=== PATIENT | male | born 1965 | race Caucasian/White ===

== ENCOUNTER 2018-08-29 15:45 | Inpatient (IN) | payer OTHER ==
[~2018-08-29] VITALS: Ht 175.3 cm; Wt 94.8 kg
[~2018-08-29 15:45] MED LIST: METHADONE10 MG PO
[2018-08-29] MEDS ORDERED: METOPROLOL SUCC50 MG PO (16:11)
[2018-08-29] MEDS ORDERED: LOSARTAN POTAS100 MG PO (16:11)
[2018-08-29] MEDS ORDERED: METFORMIN HCL500 M2 PO (16:11)
[2018-08-29] MEDS ORDERED: farxiga PO (16:11)
[2018-08-29] MEDS ORDERED: CRESTOR10 MG PO (16:11)
[2018-08-29] MEDS ORDERED: HYDROCHLOROTHIA25 MG PO (16:11)
[2018-08-29] MEDS ORDERED: HYDROMORPHONE HC2 MG PO (16:11)
[2018-08-29] MEDS ORDERED: GABAPENTIN300 MG PO (16:11)
[2018-08-29] MEDS ORDERED: METHADONE HCL5 MG PO (16:11)
[2018-08-29 17:18] LABS: CLARITY,URINE CLEAR (CLEAR); COLOR,URINE YELLOW (YELLOW); KETONES,URINE 3+ (NEGATIVE); LEUKOCYTE ESTERASE ,URINE NEGATIVE (NEGATIVE); NITRITE,URINE NEGATIVE (NEGATIVE); PROTEIN,URINE DIPSTICK 1+ (NEGATIVE)
[2018-08-29 17:19] LABS: BILIRUBIN,URINE NEGATIVE (NEGATIVE); URINE UROBILINOGEN 0.2 mg/dL (0.2 - 1)
[2018-08-29 17:26] LABS: EPITHELIAL CELLS,URINE RARE /LPF; RBC,URINE 0-5 /HPF (0-5)
[2018-08-29 17:37] LABS: BASOPHILS # (AUTO) 0.1 (0.0-0.1); BASOPHILS % 0.7 % (0.0-1.0); EOSINOPHILS # (AUTO) 0.1 (0.0-0.4); EOSINOPHILS % 1.1 % (0.0-6.0); HEMATOCRIT 49.2 % (38.2-49.6); HEMOGLOBIN 16.2 g/dL (14.0-18.0); LYMPHOCYTES # (AUTO) 2.1 (1.0-3.2); LYMPHOCYTES % 22.2 % (18.0-39.1); MEAN CORPUSCULAR HEMOGLOBIN 29.2 pg (28-32); MEAN CORPUSCULAR HGB CONC 32.9 g/dL (31-35); MEAN CORPUSCULAR VOLUME 88.6 fL (81-99); MONOCYTES # (AUTO) 0.7 (0.2-0.8); MONOCYTES % 7.9 % (4.4-11.3); NEUTROPHILS # (AUTO) 6.2 (2.1-6.9); NEUTROPHILS % 66.7 % (38.7-80.0); PLATELET COUNT 269 x10e3/uL (140-360); RED BLOOD COUNT 5.55 x10e6/uL (4.3-5.7); RED CELL DISTRIBUTION WIDTH 13.9 % (11.7-14.4)
--- NOTE | 2018-08-29 17:51 | Diagnostic Imaging Report ---
EXAMINATION: CHEST 2 VIEWS INDICATION: Shortness of breath COMPARISON: None FINDINGS: PA and lateral views TUBES and LINES: None. LUNGS: Lungs are well inflated. Lungs are clear. There is no evidence of pneumonia or pulmonary edema. PLEURA: No pleural effusion or pneumothorax. HEART AND MEDIASTINUM: The cardiomediastinal silhouette is unremarkable. BONES AND SOFT TISSUES: No acute osseous lesion. Soft tissues are unremarkable. UPPER ABDOMEN: No free air under the diaphragm. IMPRESSION: No acute thoracic abnormality. Signed by: Dr. Maury Dickens M.D. on 08/29/2018 5:48 PM
[2018-08-29 18:01] LABS: ALBUMIN 4.3 g/dL (3.5-5.0); ALBUMIN/GLOBULIN RATIO 1.1 (0.8-2.0); ANION GAP 28.9 mmol/L (8-16); CALCIUM 9.8 mg/dL (8.4-10.2); CREATININE, SERUM 1.37 mg/dL (0.72-1.25); POTASSIUM 3.9 mmol/L (3.5-5.1)
--- NOTE | 2018-08-29 18:05 | NUR ---
RT notified of need for ABG.
[2018-08-29] MEDS ORDERED: SODIUM CHLORIDE 0.9% 1000ML 1,000 ML IV STA (18:06)
[2018-08-29 18:28] LABS: AMPHETAMINES SCREEN,URINE NEGATIVE (NEGATIVE); BENZODIAZEPINES SCREEN,URINE NEGATIVE (NEGATIVE); PHENCYCLIDINE SCREEN,URINE NEGATIVE (NEGATIVE)
--- NOTE | 2018-08-29 18:30 | NUR ---
ABG COLLECTED BY RT ORDERED, IVF'S INFUSING ORDERED. DR. SHELLEY IN TO TALK WITH PT ABOUT LAB RESULTS AND ADMISSION. PENDING FURTHER ORDERS AT THIS TIME AND PT AWARE OF THIS.
[2018-08-29 18:33] LABS: ABG HCO3 5 mmol/L (23-28); ABG PCO2 14 mmHg (41-51); ABG PH 7.14 (7.31-7.41); ABG PO2 108 mmHg (80-105)
[2018-08-29 19:11] LABS: ACETAMINOPHEN < 3 ug/mL (10-30)
[2018-08-29 19:12] LABS: SALICYLATE < 5.0 mg/dL (0-30)
--- NOTE | 2018-08-29 19:12 | NUR ---
REPORT GIVEN TO ADRIEL HI INSURANCE ACTUARY NURSE.
[2018-08-29] MEDS ORDERED: ONDANSETRON HCL INJ 2 MG/ML VIAL IV PRN (19:30)
[2018-08-29] MEDS: HYDROMORPHONE 2MG/ML 2 MG/ML ML IV PRN ×2 (19:37→23:15)
--- NOTE | 2018-08-29 19:40 | NUR ---
PT MEDICATED FOR PAIN ORDERED. PT DENIES NAUSEA AT THIS TIME. SUSSY RN AT BEDSIDE WITH PT AT THIS TIME AND AWARE PAIN MED GIVEN. PT PENDING ROOM ASSIGNMENT AT THIS TIME.
[2018-08-29] MEDS ORDERED: INSULIN REGULAR, HUMAN 3ML VL 100 UNIT in SODIUM CHLORIDE 0.45% 100 ML 100 ML IV SCH ×2 (19:46)
[2018-08-29] MEDS ORDERED: DEXTROSE 50% SYRINGE 50 ML IV PRN (20:00)
--- OUTSIDE RECORDS SUMMARY | 2018-08-29 20:05 | XMS REPORT ---
Author Author [facility] Address Unknown Phone Unavailable Care Team Providers Care Poker Prop Player Name Role Phone Jessica SHELLEY Unavailable Unavailable Problems This patient has no known problems. Allergies, Adverse Reactions, Alerts This patient has no known allergies or adverse reactions. Medications This patient has no known medications. Results Test Description Test Time Test Comments Text Results Atomic Results Result Comments CHEST 2 VIEWS 2018-08-29 17:48:00 [place] [address] Patient Name: ARIELA WANG MR #: [id number] : 1965 Age/Sex: 53/M Req #: [id number] [facility] Physician: Ordered by: DARRIAN SHELLEY MD Report #: [id number] Location: ER Room/Bed: Procedure: [id number] DX/CHEST 2 VIEWS Exam Date: 08/29/18 Exam Time: 1701 REPORT STATUS: Signed EXAMINATION: CHEST 2 VIEWS INDICATION: Shortnes s of breath COMPARISON: None FINDINGS: PA and lateral views TUBES and LINES: None. LUNGS: Lungs are well inflated. Lungs are clear. There is no evidence of pneumonia or pulmonary edema. PLEURA: No pleural effusion or pneumothorax. HEART AND MEDIASTINUM: The cardiomediastinal silhouette is unremarkable. BONES AND SOFT TISSUES: No acute osseous lesion. Soft tissues are unremarkable. UPPER ABDOMEN: No free air under the diaphragm. IMPRESSION: No acute thoracic abnormality. Signed by: Dr. Lisseth Dickens M.D. on 08/29/2018 5:48 PM Dictated By: LISSETH DICKENS MD 47 Transcribed By: CHERIE on 08/29/181747 COPY TO: DARRIAN SHELLEY MD
--- NOTE | 2018-08-29 20:30 | NUR ---
Received to 196 from ER. Placed on EKG, pulse ox & NBP for monitoring. Admission history, family history, & initial admission assessment completed. See intervention.
[2018-08-29 20:45] VITALS: BP 116/71
[2018-08-29] MEDS ORDERED: GABAPENTIN400 MG PO (20:57)
[2018-08-29] MEDS ORDERED: GABAPENTIN100 MG PO (20:57)
[2018-08-29 21:00] VITALS: BP 122/74
[2018-08-29] MEDS: SODIUM CHLORIDE 0.9% 1000ML 1,000 ML IV SCH (21:43)
--- NOTE | 2018-08-29 21:45 | NUR ---
BS 144. IV NS @ 150ml infusing and Insulin drip @ 2 units/hr.
[2018-08-29 22:00] VITALS: BP 103/45
[2018-08-29 23:00] VITALS: BP 136/78
[2018-08-29 23:59] VITALS: BP 93/58
[2018-08-30] VITALS (24 sets, daily range): BP systolic 76–126; BP diastolic 49–102
[2018-08-30] MEDS: SODIUM CHLORIDE 0.9% 1000ML 1,000 ML IV SCH ×2 (04:45→09:46)
[2018-08-30 04:48] LABS: BASOPHILS # (AUTO) 0.1 (0.0-0.1); BASOPHILS % 0.6 % (0.0-1.0); EOSINOPHILS # (AUTO) 0.2 (0.0-0.4); EOSINOPHILS % 2.5 % (0.0-6.0); HEMATOCRIT 37.5 % (38.2-49.6); HEMOGLOBIN 12.5 g/dL (14.0-18.0); LYMPHOCYTES # (AUTO) 2.8 (1.0-3.2); LYMPHOCYTES % 35.6 % (18.0-39.1); MEAN CORPUSCULAR HEMOGLOBIN 28.8 pg (28-32); MEAN CORPUSCULAR HGB CONC 33.3 g/dL (31-35); MEAN CORPUSCULAR VOLUME 86.4 fL (81-99); MONOCYTES # (AUTO) 0.8 (0.2-0.8); MONOCYTES % 9.9 % (4.4-11.3); NEUTROPHILS % 50.4 % (38.7-80.0); PLATELET COUNT 197 x10e3/uL (140-360); RED BLOOD COUNT 4.34 x10e6/uL (4.3-5.7); RED CELL DISTRIBUTION WIDTH 13.7 % (11.7-14.4)
[2018-08-30] MEDS: HYDROMORPHONE 2MG/ML 2 MG/ML ML IV PRN ×6 (04:50→23:25)
[2018-08-30 05:25] LABS: ANION GAP 19.3 mmol/L (8-16); BLOOD UREA NITROGEN 9 mg/dL (7-26); BUN/CREATININE RATIO 9 (6-25); CALCIUM 8.3 mg/dL (8.4-10.2); CHLORIDE 109 mmol/L (98-107); CREATININE, SERUM 1.04 mg/dL (0.72-1.25); EST GLOMERULAR FILTRATION RATE > 60 ML/MIN (60-); GLUCOSE 80 mg/dL (74-118); POTASSIUM 3.3 mmol/L (3.5-5.1); SODIUM 133 mmol/L (136-145)
[2018-08-30 05:28] LABS: CARBON DIOXIDE 8 mmol/L (22-29)
--- NOTE | 2018-08-30 06:00 | NUR ---
BS 77. Insulin drip off.
--- NOTE | 2018-08-30 06:09 | NUR ---
Call to Dr. Ann. Advised of BS & CO2 8. Orders given.
--- NOTE | 2018-08-30 07:33 | History and Physical ---
Patient is a 53-year-old gentleman that comes in with dizziness and weakness. The patient was in his usual state of health until 3 weeks prior to admission. The patient had increased thirst and increased urination. Went to the primary care's office and was given metformin. Was given Farxiga. The patient yesterday started to feel increasing dizziness, increasing weakness, and also some abdominal pain. The patient came into the emergency room and was found to have DKA and admitted to the ICU for DKA with DKA protocol. PAST MEDICAL HISTORY: History of diabetes mellitus, history of hypertension. Other medical history includes hyperlipidemia, hypertension and also history of low back pain. MEDICATIONS: That he takes at home are: 1. Gabapentin 100 mg 3 times a day. 2. Hydrochlorothiazide 25 mg. 3. Hydromorphone 2 mg. 4. Losartan 100 mg. 5. Metformin 500 mg. 6. Methadone 5 mg. 7. Metoprolol 50 mg. 8. Rosuvastatin 10 mg at nighttime. SURGICAL HISTORY: Includes history of appendectomy, history of neck surgery. SOCIAL HISTORY: Positive for nonsmoker. No ETOH. No IV drug abuse either. REVIEW OF SYSTEMS: Negative for chest pain. Positive for shortness of breath. Positive for nausea. Positive for vomiting. No diarrhea. No constipation or rectal bleeding. No hematochezia. No abdominal pain either. PHYSICAL EXAMINATION VITAL SIGNS: Oxygen saturation of 99%, temperature is within normal limits, pulse of 69, respirations of 16, blood pressure is 102/62, pulse oximetry 97% on room air. HEENT: Normocephalic and atraumatic. Pupils reactive to light and accommodation. CV: S1 and S2 normal. Regular rate and rhythm. ABDOMEN: Tender in the left lower quadrant with abdominal fullness in the left quadrant. EXTREMITIES: No clubbing. No cyanosis. No edema. NEUROLOGICAL: Alert and oriented times 3. The patient has no focal weakness either. LABORATORY VALUES: White count was 9.36, hemoglobin 16.2, hematocrit of 49.2. Chemistry shows sodium of 133, potassium 3.3, chloride 109, CO2 8 with an anion gap of 19.3, BUN was 9, total bilirubin was normal. Calcium was 8.3. Urine was ketones 3+ and nitrates negative. Toxicology positive for opiates and methadone, which he takes. Ethyl alcohol was less than 10. Acetaminophen was less than 3. IMAGING STUDIES: Chest x-ray was essentially within normal limits. No pleural effusion or pneumothorax. ASSESSMENT 1. Diabetic ketoacidosis with anion gap: The patient will be started on insulin protocol. Will continue with this. The patient will be monitored carefully. Consult with Dr. Ann has been done. Farxiga will be stopped right now. Pain medications will be instituted and hydration. Labs will be repeated in the morning. Further recommendations per clinical course. 2. Back pain: Will continue his pain medications. 3. The patient has some abdominal fullness: Will go ahead and do a computerized tomography of the abdomen and pelvis without contrast. Further recommendations per clinical course. Will keep the patient in the intensive care unit. Job#: [id number] FIDELIA
[2018-08-30] MEDS ORDERED: METFORMIN HCL 500 MG TAB CR PO SCH (08:00)
[2018-08-30 08:09] LABS: THYROID STIMULATING HORMONE 1.276 uIU/mL (0.350-4.940)
[2018-08-30] MEDS ORDERED: DIATRIZOATE MEGL/DIATRIZOA SOD 30 ML BTL PO ONE (08:17)
[2018-08-30] MEDS: GABAPENTIN 100 MG CAP PO SCH (08:56)
[2018-08-30] MEDS: METHADONE HCL 5 MG TAB PO SCH (08:56)
[2018-08-30] MEDS: LOSARTAN POTASSIUM 100 MG TAB PO SCH (10:00)
[2018-08-30] MEDS: METOPROLOL SUCCINATE 50 MG TAB XL PO SCH (10:00)
--- NOTE | 2018-08-30 12:42 | Diagnostic Imaging Report ---
EXAM: CT ABDOMEN AND PELVIS without IV CONTRAST DATE: 08/30/2018 7:11 AM Time stamp on Exam: 10:20 AM INDICATION: Abdominal fullness COMPARISON: None TECHNIQUE: The abdomen and pelvis were scanned using a multidetector helical scanner. Coronal and sagittal reformations were obtained. Routine protocol performed. Active dose reduction parameters were utilized. IV Contrast: None Oral Contrast: Gastrografin intermixed with water Radiation Dose: Total DLP 803.99 mGy*cm Estimated effective dose: DLP x 0.015 x size factor FINDINGS: LOWER THORAX: No consolidations LIVER: No masses BILIARY: The gallbladder is unremarkable. No ductal dilatation. SPLEEN: No masses PANCREAS: No masses ADRENALS: No nodules KIDNEYS: Symmetric perfusion. No enhancing masses. No hydronephrosis. GI TRACT: No distention, wall thickening or evidence of obstruction. Metallic densities at the GE junction. VESSELS: Atherosclerotic calcification within the aorta. PERITONEUM/RETROPERITONEUM: No free air or fluid LYMPH NODES: No lymphadenopathy REPRODUCTIVE ORGANS: Calcification within the prostate gland. BLADDER: Urinary bladder distention SOFT TISSUES: Unremarkable BONES: No suspicious bone lesions. Postoperative fusion at L5-S1 with orthopedic hardware IMPRESSION: 1. Mild urinary bladder distention. 2. Otherwise no acute abnormality. Signed by: Dr. Barron Elizondo DO on 08/30/2018 12:39 PM
--- NOTE | 2018-08-30 15:02 | Consultation ---
DATE OF CONSULTATION: August 29, 2018 ENDOCRINE CONSULTATION This is a patient of Dr. Amor Brian. Thank you very much for referring this patient. HISTORY OF PRESENT ILLNESS: This is a 53-year-old white gentleman who is referred to me for evaluation of uncontrolled diabetes mellitus and diabetic ketoacidosis. According to the patient, he was diagnosed to have diabetes about 3 to 4 weeks back. At that time he was put on metformin 500 mg twice daily. He had at that time polyuria, polydipsia, dryness of mouth and extreme exhaustion. He went back to see the physician, and since the blood sugars were still high the Farxiga was added about 10 mg once daily. Since that time, the patient has been having extreme weakness, polyuria, polydipsia, and also he is complaining of shortness of breath. He came to the emergency room. In the emergency room his blood sugars were in 120 to 130 range, but his anion gap was significantly elevated and his CO2 level was only 6. The patient is admitted into the hospital for evaluation and management of diabetic ketoacidosis. Patient also has history of blurred vision. He has also a chronic pain syndrome and is on methadone. PHYSICAL EXAMINATION: GENERAL: Today the patient is alert, awake, a little bit apprehensive. He is moderately overweight. VITAL SIGNS: His heart rate is around 80. Blood pressure is 120/70 mmHg. HEENT: Examination essentially unremarkable. Thyroid is palpable. Clinically he is near euthyroid. CHEST: Bilateral vesicular breathing. He has mild bronchospasm. CARDIAC: 1st and 2nd heart sounds. There is no 3rd or 4th heart sound. Ejection sound grade 2/6. CLINICAL IMPRESSION: 1. Diabetes mellitus type 2, new onset. 2. Diabetic ketoacidosis which could be induced by Farxiga as well. 3. Chronic pain syndrome. 4. Hypertension. The plan at this time is the metformin and the Farxiga have been discontinued. The patient has been started on insulin drip and IV fluids. Will also do a hemoglobin A1c and thyroid function test. Thanks for referring this patient. I will be following this patient with you. Job#: [id number] ANURAG
[2018-08-30] MEDS: DEXTROSE 5%/0.45% SOD CHL 1,000 ML IV SCH ×2 (16:18→23:18)
--- NOTE | 2018-08-30 18:58 | NUR ---
Report received. Assumed care. Assessment done. See interventions. IV D5 / NS @ 150ml/hr & Insulin @ 3units/hr.
[2018-08-30] MEDS: SIMVASTATIN 20 MG TAB PO SCH (21:00)
[2018-08-30] MEDS ORDERED: SIMVASTATIN 40 MG TAB PO SCH (21:00)
[2018-08-30] MEDS: GABAPENTIN 400 MG CAP PO SCH (21:00)
--- NOTE | 2018-08-30 21:31 | NUR ---
HS snack given per request.
--- NOTE | 2018-08-30 23:27 | NUR ---
Medicated for c/o pain.
[2018-08-31] VITALS (22 sets, daily range): BP systolic 82–129; BP diastolic 50–88
[2018-08-31] MEDS: HYDROMORPHONE 2MG/ML 2 MG/ML ML IV PRN ×6 (05:10→23:00)
[2018-08-31 05:29] LABS: BASOPHILS # (AUTO) 0.1 (0.0-0.1); BASOPHILS % 0.8 % (0.0-1.0); EOSINOPHILS # (AUTO) 0.3 (0.0-0.4); HEMATOCRIT 35.3 % (38.2-49.6); HEMOGLOBIN 11.8 g/dL (14.0-18.0); LYMPHOCYTES # (AUTO) 2.4 (1.0-3.2); MEAN CORPUSCULAR HEMOGLOBIN 28.7 pg (28-32); MEAN CORPUSCULAR HGB CONC 33.4 g/dL (31-35); MEAN CORPUSCULAR VOLUME 85.9 fL (81-99); MONOCYTES # (AUTO) 0.6 (0.2-0.8); NEUTROPHILS # (AUTO) 2.9 (2.1-6.9); NEUTROPHILS % 46.2 % (38.7-80.0); PLATELET COUNT 183 x10e3/uL (140-360); RED BLOOD COUNT 4.11 x10e6/uL (4.3-5.7)
[2018-08-31] MEDS: DEXTROSE 5%/0.45% SOD CHL 1,000 ML IV SCH ×2 (05:46→10:15)
[2018-08-31 05:56] LABS: ALANINE AMINOTRANSFERASE 8 IU/L (0-55); ALBUMIN 2.8 g/dL (3.5-5.0); ALBUMIN/GLOBULIN RATIO 1.1 (0.8-2.0); ALKALINE PHOSPHATASE 62 IU/L (40-150); ANION GAP 11.9 mmol/L (8-16); BLOOD UREA NITROGEN 10 mg/dL (7-26); BUN/CREATININE RATIO 10 (6-25); CALCIUM 8.5 mg/dL (8.4-10.2); CARBON DIOXIDE 17 mmol/L (22-29); CHLORIDE 112 mmol/L (98-107); CREATININE, SERUM 1.04 mg/dL (0.72-1.25); EST GLOMERULAR FILTRATION RATE > 60 ML/MIN (60-); GLUCOSE 140 mg/dL (74-118); MAGNESIUM 2.1 MG/DL (1.3-2.1); SODIUM 138 mmol/L (136-145)
[2018-08-31 06:09] LABS: POTASSIUM 2.9 mmol/L (3.5-5.1)
--- NOTE | 2018-08-31 06:12 | NUR ---
K+ 2.9. Call to Dr. Brian. Spoke with answering service. Awaiting call back.
--- NOTE | 2018-08-31 06:30 | NUR ---
Dr. Brian here. Advised of K+ 2.9. Orders given. KDur 40mEq po given.
[2018-08-31] MEDS ORDERED: POTASSIUM CHLORIDE 20 MEQ TAB CR PO NR (06:45)
--- NOTE | 2018-08-31 07:00 | Progress Note ---
DATE: Patient came in with diabetic ketoacidosis in the ICU. Receiving insulin drip. Currently, the patient is doing okay. No complaints. No chest pains. No shortness of breath. No abdominal pain. No fever. No nausea or vomiting. MEDICATIONS: At this time, gabapentin, insulin drip. The patient is on losartan, methadone, metoprolol, Zofran as needed, potassium chloride, and simvastatin. OBJECTIVE VITAL SIGNS: Temperature is 97.7, pulse of 57, blood pressure is trending low at 117/78, satting at 97% on room air. HEENT: Normocephalic and atraumatic. Pupils reactive to light and accommodation. CV: S1 and S2 normal. Regular rate and rhythm. ABDOMEN: Nontender and nondistended. EXTREMITIES: No clubbing. No cyanosis. No edema. LABORATORY VALUES: White count is 6.18, hemoglobin 11.8, hematocrit of 35.3. Chemistry: Sodium of 138, potassium 3.9, bicarb 17, anion gap is corrected at 11.9. GFR above 60. Blood sugars have been running in the 140s to 250 range. The rest of the labs are within normal limits. MICROBIOLOGY: Blood cultures with no growth in 24 hours. Urine culture is pending. ASSESSMENT 1. Diabetic ketoacidosis: Could be induced by Farxiga. 2. Diabetes mellitus, new onset: I will start the patient on insulin. 3. Chronic pain syndrome: Continue with pain management. 4. Hypertension: Continue with antihypertensives. 5. Hyperlipidemia: Will continue with statins at this time. The patient is being seen by Dr. Ann. Further recommendations per clinical course. The patient's A1c is pending. The patient can be transferred to [facility]. Further recommendations per clinical course. Will continue to monitor the patient along with the rn lactation consultant. Job#: [id number] FIDELIA
[2018-08-31] MEDS: GABAPENTIN 100 MG CAP PO SCH (08:32)
[2018-08-31] MEDS: METHADONE HCL 5 MG TAB PO SCH (08:32)
[2018-08-31] MEDS: LOSARTAN POTASSIUM 100 MG TAB PO SCH (09:00)
[2018-08-31] MEDS: METOPROLOL SUCCINATE 50 MG TAB XL PO SCH (09:00)
--- NOTE | 2018-08-31 12:15 | NUR ---
FOR BLOOD GLUCOSE 215, INCREASED INSULIN GTT TO 3 UNITS PER HOUR PER PROTOCOL
[2018-08-31] MEDS ORDERED: INSULIN LISPRO 100 UNIT/1 ML 3ML VIAL SQ ONE (14:00)
[2018-08-31] MEDS: POTASSIUM CHLORIDE 40 MEQ in DEXTROSE 5%/0.45% SOD CHL 1,000 ML IV SCH ×3 (14:16)
--- NOTE | 2018-08-31 15:34 | NUR ---
PATIENT TRANSFERRED FROM ICU TO IMCU. Network And Threat Support Specialist to bedside to discuss plan of care with patient/family. CM/SW role and care transitions discussed. Anticipated discharge plan discussed along with duration of care. CM discussed patients right to make decisions in care. CM/SW work hours given. Patient lives: LIVES WITH DAUGHTER IN [address] IN [place], [place] Admit/Transfer: ED POA/Emergency contact: : AMELIA WANG WHO LIVES IN [place] [phone]; DAUGHTER: ROB WANG [phone] Current/Previous Home Health: NONE PCP/Follow-up Care: LUCIUS VILLASENOR MD Current/Previous DME: NONE Other Services: NONE Employment Status: EMPLOYED Areas of Concerns: DIABETES EDUCATION Referral Needs: NONE AT THIS TIME Education Needs: DIABETES EDUCATION IMM/MARK given and signed (if applicable): NO Goal for discharge: RETURN HOME INDEPENDENT WITH NO NEEDS CM left business card at the bedside with contact information. Name and number was also written on the patients whiteboard. Patient verbalized understanding of discussion. CM will follow-up with ongoing discharge and transition of care needs.
[2018-08-31] MEDS: INSULIN LISPRO 100 UNIT/1 ML 3ML VIAL SQ SCH ×3 (15:52→20:32)
[2018-08-31] MEDS ORDERED: POTASSIUM CHLORIDE 20 MEQ TAB CR PO SCH (18:00)
--- NOTE | 2018-08-31 19:30 | NUR ---
Received patient stable in bed, ambulatory. Insulin drip stopped, on blood sugars achs, insulin sliding scale and scheduled Levemir. Remains on IV fluids with potassium supplementation. On Dilaudid prn for pain
[2018-08-31] MEDS: GABAPENTIN 400 MG CAP PO SCH (20:31)
[2018-08-31] MEDS: SIMVASTATIN 20 MG TAB PO SCH (20:31)
[2018-08-31] MEDS: INSULIN DETEMIR 100 UNIT/ML PEN SQ SCH (20:32)
--- NOTE | 2018-08-31 21:00 | NUR ---
blood sugars done, 179, insulin administered as prescribed, Hs snack given as per request
[2018-09-01] VITALS (7 sets, daily range): BP systolic 91–118; BP diastolic 58–64
[2018-09-01] MEDS: ONDANSETRON HCL INJ 2 MG/ML VIAL IV PRN ×5 (02:24→22:43)
[2018-09-01] MEDS: HYDROMORPHONE 2MG/ML 2 MG/ML ML IV PRN ×7 (02:30→22:43)
--- NOTE | 2018-09-01 04:00 | NUR ---
Patient remains on iv fluids, able to ambulate to the bathroom, remains a medsurg status, prn Dilaudid administered prn for pain. Vitals stable.
[2018-09-01 06:06] LABS: ANION GAP 13.6 mmol/L (8-16); BLOOD UREA NITROGEN 7 mg/dL (7-26); BUN/CREATININE RATIO 8 (6-25); CALCIUM 8.7 mg/dL (8.4-10.2); CARBON DIOXIDE 20 mmol/L (22-29); CHLORIDE 110 mmol/L (98-107); CREATININE, SERUM 0.85 mg/dL (0.72-1.25); EST GLOMERULAR FILTRATION RATE > 60 ML/MIN (60-); GLUCOSE 214 mg/dL (74-118); POTASSIUM 3.6 mmol/L (3.5-5.1); SODIUM 140 mmol/L (136-145)
[2018-09-01] MEDS ORDERED: POTASSIUM CHLORIDE 20 MEQ TAB CR PO STA (06:39)
[2018-09-01] MEDS: INSULIN LISPRO 100 UNIT/1 ML 3ML VIAL SQ SCH ×7 (07:45→21:07)
[2018-09-01] MEDS: LOSARTAN POTASSIUM 100 MG TAB PO SCH (08:19)
[2018-09-01] MEDS: GABAPENTIN 100 MG CAP PO SCH (08:19)
[2018-09-01] MEDS: METHADONE HCL 5 MG TAB PO SCH (08:19)
[2018-09-01] MEDS: METOPROLOL SUCCINATE 50 MG TAB XL PO SCH (08:20)
[2018-09-01] MEDS: INSULIN DETEMIR 100 UNIT/ML PEN SQ SCH ×2 (09:30→21:07)
[2018-09-01] MEDS: POTASSIUM CHLORIDE 40 MEQ in DEXTROSE 5%/0.45% SOD CHL 1,000 ML IV SCH ×2 (10:44→20:53)
--- NOTE | 2018-09-01 13:57 | NUR ---
Patient ambulating in ken and in room independently. doing well. has effective pain relief with current interventions.
--- NOTE | 2018-09-01 16:49 | NUR ---
instructed patient early afternoon on checking his blood glucose and drawing up and self administering insulin. dinner at bedside. pt completed his own blood glucose and self administered insulin per MD orders with supervision and guidance. pt will need continue instructions and assistance until discharge home with orders. written handouts given as well.
[2018-09-01] MEDS: GABAPENTIN 400 MG CAP PO SCH (21:05)
[2018-09-01] MEDS: SIMVASTATIN 20 MG TAB PO SCH (21:05)
[2018-09-02] MEDS: HYDROMORPHONE 2MG/ML 2 MG/ML ML IV PRN ×4 (01:49→11:40)
[2018-09-02] MEDS: ONDANSETRON HCL INJ 2 MG/ML VIAL IV PRN ×3 (01:49→11:40)
[2018-09-02 04:54] LABS: BASOPHILS % 0.9 % (0.0-1.0); EOSINOPHILS # (AUTO) 0.2 (0.0-0.4); EOSINOPHILS % 4.3 % (0.0-6.0); HEMATOCRIT 33.4 % (38.2-49.6); HEMOGLOBIN 11.3 g/dL (14.0-18.0); LYMPHOCYTES % 43.9 % (18.0-39.1); MEAN CORPUSCULAR HEMOGLOBIN 29.1 pg (28-32); MEAN CORPUSCULAR HGB CONC 33.8 g/dL (31-35); MEAN CORPUSCULAR VOLUME 86.1 fL (81-99); MONOCYTES # (AUTO) 0.5 (0.2-0.8); NEUTROPHILS # (AUTO) 1.9 (2.1-6.9); PLATELET COUNT 162 x10e3/uL (140-360); RED BLOOD COUNT 3.88 x10e6/uL (4.3-5.7)
[2018-09-02 05:00] VITALS: BP 124/70
[2018-09-02 05:18] LABS: ANION GAP 13.7 mmol/L (8-16); BLOOD UREA NITROGEN 6 mg/dL (7-26); BUN/CREATININE RATIO 9 (6-25); CALCIUM 8.6 mg/dL (8.4-10.2); CARBON DIOXIDE 20 mmol/L (22-29); CHLORIDE 108 mmol/L (98-107); EST GLOMERULAR FILTRATION RATE > 60 ML/MIN (60-); GLUCOSE 213 mg/dL (74-118); POTASSIUM 3.7 mmol/L (3.5-5.1); SODIUM 138 mmol/L (136-145)
[2018-09-02] MEDS: INSULIN LISPRO 100 UNIT/1 ML 3ML VIAL SQ SCH ×4 (07:50→11:52)
[2018-09-02 08:00] VITALS: BP 112/74
[2018-09-02] MEDS: METOPROLOL SUCCINATE 50 MG TAB XL PO SCH (08:08)
[2018-09-02] MEDS: LOSARTAN POTASSIUM 100 MG TAB PO SCH (08:08)
[2018-09-02] MEDS: GABAPENTIN 100 MG CAP PO SCH (08:08)
[2018-09-02] MEDS: METHADONE HCL 5 MG TAB PO SCH (08:08)
[2018-09-02] MEDS: INSULIN DETEMIR 100 UNIT/ML PEN SQ SCH (08:09)
[2018-09-02] MEDS: POTASSIUM CHLORIDE 40 MEQ in DEXTROSE 5%/0.45% SOD CHL 1,000 ML IV SCH (08:16)
[2018-09-02 09:39] VITALS: BP 112/74
[2018-09-02] MEDS ORDERED: LANTUS 3ML100 UNITS/ SQ (15:14)
[2018-09-02] MEDS ORDERED: HUMALOG100 UNIT/3 SQ (15:15)
--- NOTE | 2018-09-02 15:30 | NUR ---
patient discharge from [facility] to with all belongings and with prescriptions. pt demonstrated again how to draw up insulin pen and with vial and syringe. present too and observed teaching. written instructions given with discharge paperwork. patient and verbalized understanding of all discharge instructions. p.iv removed.
[2018-09-02] MEDS ORDERED: INSULIN LISPRO 100 UNIT/1 ML 3ML VIAL SQ SCH (16:30)
== END 2018-09-02 17:22 | disposition home or self-care (01) | DRG 639 ==
LOC: ER 15:45 → ERHOLD 20:02 → ICU 20:40
PROVIDERS: ADMIT Family Medicine; ATTEND Family Medicine
DX: E11.10 Type 2 diabetes mellitus with ketoacidosis without coma (principal); G89.4 Chronic pain syndrome; M54.5 Low back pain; I10 Essential (primary) hypertension; E78.5 Hyperlipidemia, unspecified; F11.90 Opioid use, unspecified, uncomplicated; Z79.84 Long term (current) use of oral hypoglycemic drugs; Z28.82 Immunization not carried out because of caregiver refusal
CPT/HCPCS: 36415; 36600; 71046; 74176; 80048; 80053; 80307; 80320; 80329; 81001; 82805; 82948; 83036; 83605; 83690; 83735; 84443; 85025; 87040; 87086; 93005; 96372; 96376; 99284; J2405; J3480; J7030

== ENCOUNTER 2020-06-23 08:04 | Observation (INO) | payer OTHER ==
[~2020-06-23] VITALS: Ht 177.8 cm; Wt 92.5 kg
[~2020-06-23 08:04] MED LIST changes: +CRESTOR10 MG PO; +GABAPENTIN100 MG PO; +GABAPENTIN300 MG PO; +GABAPENTIN400 MG PO; +HUMALOG100 UNIT/3 SQ; +HYDROCHLOROTHIA25 MG PO; +HYDROMORPHONE HC2 MG PO; +LANTUS 3ML100 UNITS/ SQ; +LOSARTAN POTAS100 MG PO; +METFORMIN HCL500 M2 PO; +METHADONE HCL5 MG PO; +METOPROLOL SUCC50 MG PO; +farxiga PO
[2020-06-23] MEDS ORDERED: SODIUM CHLORIDE 0.9% 1000ML 1,000 ML IV STA (08:07)
--- NOTE | 2020-06-23 08:07 | Emergency Department Note ---
History of Present Illnes History of Present Illness History of Present Illness This is a 55 year old male presents to the ED for 3 week h/o of BS above 300 not responsive to current medication managmenet. Additional complaint of palpitations of the same length duration with associated light headiness . Onset (how long ago): week(s) (3) Progression: unchanged Chronicity: new Context: Denies recent illness, Denies recent surgery, Denies recent immobilization, Denies recent travel, Denies trauma/injury, Denies new medications, Denies hx of DVT/PE, Denies non-compliance w/ medications, Denies other Associated symptoms: Reports headaches, Reports malaise; Denies chest pain Treatments prior to arrival: none Previous service: tests performed, one or more referrals, re-evaluation Past Medical/Family History Physician Review I have reviewed the patient's past medical and family history. Any updates have been documented here. Past Medical History Past Medical History: Hypertension, Diabetes Past Surgical History: Appendectomy, Hernia Repair, Back Surgery, Orthopedic Implants Other Surgery: Plates in R arm Wayne L leg Plate in back Social History Smoking Cessation: Never Smoker Alcohol Use: None Any Illegal Drug Use: No Other Last Tetanus: unknown Review of Systems Review of Systems Constitutional: Reports no symptoms EENTM: Reports no symptoms Cardiovascular: Reports palpitations Respiratory: Reports no symptoms Gastrointestinal: Reports no symptoms Genitourinary: Reports no symptoms Musculoskeletal: Reports no symptoms Integumentary: Reports no symptoms Neurological: Reports headache, Reports other (dizziness) Psychological: Reports no symptoms Endocrine: Reports no symptoms Hematological/Lymphatic: Reports no symptoms Physical Exam Related Data Allergies: Coded Allergies: No Known Allergies (Unverified , 08/29/18) Physical Exam CONSTITUTIONAL HENT EYES NECK PULMONARY CARDIOVASCULAR GASTROINTESTINAL GENITOURINARY SKIN MUSCULOSKELETAL NEUROLOGICAL PSYCHOLOGICAL Results Laboratory Lab results reviewed: Yes Laboratory comments Laboratory Tests Test 06/23/20 09:21 06/23/20 08:48 Arterial Blood pH 7.36 (7.35-7.45) Arterial Blood Partial Pressure CO2 34 mmHg (35-45) Arterial Blood Partial Pressure O2 72 mmHg (80-105) Arterial Blood HCO3 19 mmol/L (22-26) Arterial Blood Total CO2 20 Arterial Blood Oxygen Saturation 95.0 % (95-98) Arterial Blood Base Excess -6.0 mmol/L (-2 - 3) FiO2 21 % White Blood Count 12.57 x10e3/uL (4.8-10.8) Red Blood Count 5.34 x10e6/uL (4.3-5.7) Hemoglobin 15.1 g/dL (14.0-18.0) Hematocrit 44.7 % (38.2-49.6) Mean Corpuscular Volume 83.7 fL (81-99) Mean Corpuscular Hemoglobin 28.3 pg (28-32) Mean Corpuscular Hemoglobin Concent 33.8 g/dL (31-35) Red Cell Distribution Width 13.0 % (11.7-14.4) Platelet Count 276 x10e3/uL (140-360) Neutrophils (%) (Auto) 74.7 % (38.7-80.0) Lymphocytes (%) (Auto) 16.9 % (18.0-39.1) Monocytes (%) (Auto) 5.4 % (4.4-11.3) Eosinophils (%) (Auto) 1.4 % (0.0-6.0) Basophils (%) (Auto) 0.6 % (0.0-1.0) Neutrophils # (Auto) 9.4 (2.1-6.9) Lymphocytes # (Auto) 2.1 (1.0-3.2) Monocytes # (Auto) 0.7 (0.2-0.8) Eosinophils # (Auto) 0.2 (0.0-0.4) Basophils # (Auto) 0.1 (0.0-0.1) Absolute Immature Granulocyte (auto 0.13 x10e3/uL (0-0.1) Urine Color Yellow (YELLOW) Urine Clarity Clear (CLEAR) Urine pH 5 (5 - 7) Urine Specific [place] 1.025 (1.010-1.025) Urine Protein Negative (NEGATIVE) Urine Glucose (UA) 2+ (NEGATIVE) Urine Ketones >=160 (NEGATIVE) Urine Blood Trace (NEGATIVE) Urine Nitrite Negative (NEGATIVE) Urine Bilirubin Negative (NEGATIVE) Urine Urobilinogen 0.2 mg/dL (0.2 - 1) Urine Leukocyte Esterase Negative (NEGATIVE) Urine RBC 0-5 /HPF (0-5) Urine WBC 0-5 /HPF (0-5) Urine Epithelial Cells Rare /LPF (NONE) Urine Bacteria Rare /HPF (NONE) Sodium Level 136 mmol/L (136-145) Potassium Level 4.4 mmol/L (3.5-5.1) Chloride Level 102 mmol/L (98-107) Carbon Dioxide Level 19 mmol/L (22-29) Anion Gap 19.4 mmol/L (8-16) Blood Urea Nitrogen 12 mg/dL (7-26) Creatinine 0.85 mg/dL (0.72-1.25) Estimat Glomerular Filtration Rate > 60 ML/MIN (60-) BUN/Creatinine Ratio 14 (6-25) Glucose Level 360 mg/dL (74-118) Calcium Level 9.1 mg/dL (8.4-10.2) Total Bilirubin 0.5 mg/dL (0.2-1.2) Aspartate Amino Transf (AST/SGOT) 18 IU/L (5-34) Alanine Aminotransferase (ALT/SGPT) 22 IU/L (0-55) Alkaline Phosphatase 120 IU/L (40-150) Creatine Kinase 38 IU/L (30-200) Creatine Kinase MB 1.80 ng/mL (0-5.0) Troponin I 0.019 ng/mL (0-0.300) Total Protein 7.4 g/dL (6.5-8.1) Albumin 4.1 g/dL (3.5-5.0) Globulin 3.3 g/dL (2.3-3.5) Albumin/Globulin Ratio 1.2 (0.8-2.0) Procedures 12 Lead ECG Interpretation ECG Interpretation : ECG: ECG 1 Habitat Biologist: Interpreted by ED physician Date: Jun 23, 2020 Time: 08:28 Prior ECG tracings: reviewed Rhythm: sinus rhythm Rate: normal BPM: 84 QRS axis: normal ST segments normal: Yes T waves normal: Yes Other findings: PRWP Clinical Impression: non-specific ECG ABG Interpretation ABG Results: ABG 1 Interpretation: normal Assessment & Plan Medical Decision Making MDM Diff Dx : DKA, ACS, hyperglycemia Assessment & Plan Final Impression: (1) Heart palpitations (2) Hyperglycemia Home Meds Reported Medications Insulin Lispro (HUMALOG) 100 Unit/1 Ml Insuln.pen, 10 SQ AC 09/02/18 Insulin Glargine (LANTUS 3ML PEN) 100 Units/1 Ml Inj, 20 UNITS SQ HS 09/02/18 Gabapentin (GABAPENTIN) 400 Mg Capsule, 400 MG PO HS, #30 CAP 08/29/18 Gabapentin (GABAPENTIN) 100 Mg Capsule, PO DAILY 08/29/18 Hydromorphone Hcl (HYDROMORPHONE HCL) 2 Mg Tablet, MG PO, TAB 08/29/18 Methadone Hcl (METHADONE HCL) 5 Mg Tablet, 5 MG PO DAILY, TAB 08/29/18 Metoprolol Succinate (METOPROLOL SUCCINATE) 50 Mg Tab.er.24h, 50 MG PO DAILY, MG 08/29/18 Rosuvastatin Calcium (CRESTOR) 10 Mg Tab, 10 MG PO HS THERAPEUTICALLY SUBSTITUTED WITH SIMVASTATIN 40MG 08/29/18 Hydrochlorothiazide (HYDROCHLOROTHIAZIDE) 25 Mg Tablet, 25 MG PO DAILY, #30 TAB 08/29/18 Losartan Potassium (LOSARTAN POTASSIUM) 100 Mg Tablet, 100 MG PO DAILY, TAB 08/29/18 RENO TAYLOR DO Jun 23, 2020 08:07
[2020-06-23 09:01] LABS: BASOPHILS # (AUTO) 0.1 (0.0-0.1); BASOPHILS % 0.6 % (0.0-1.0); EOSINOPHILS # (AUTO) 0.2 (0.0-0.4); EOSINOPHILS % 1.4 % (0.0-6.0); HEMATOCRIT 44.7 % (38.2-49.6); HEMOGLOBIN 15.1 g/dL (14.0-18.0); LYMPHOCYTES # (AUTO) 2.1 (1.0-3.2); LYMPHOCYTES % 16.9 % (18.0-39.1); MEAN CORPUSCULAR HEMOGLOBIN 28.3 pg (28-32); MEAN CORPUSCULAR HGB CONC 33.8 g/dL (31-35); MEAN CORPUSCULAR VOLUME 83.7 fL (81-99); MONOCYTES # (AUTO) 0.7 (0.2-0.8); MONOCYTES % 5.4 % (4.4-11.3); NEUTROPHILS # (AUTO) 9.4 (2.1-6.9); NEUTROPHILS % 74.7 % (38.7-80.0); PLATELET COUNT 276 x10e3/uL (140-360); RED BLOOD COUNT 5.34 x10e6/uL (4.3-5.7)
[2020-06-23 09:27] LABS: CLARITY,URINE CLEAR (CLEAR); COLOR,URINE YELLOW (YELLOW); KETONES,URINE >=160 (NEGATIVE); LEUKOCYTE ESTERASE ,URINE NEGATIVE (NEGATIVE); NITRITE,URINE NEGATIVE (NEGATIVE); PROTEIN,URINE DIPSTICK NEGATIVE (NEGATIVE)
[2020-06-23 09:28] LABS: ALANINE AMINOTRANSFERASE 22 IU/L (0-55); ALBUMIN 4.1 g/dL (3.5-5.0); ALBUMIN/GLOBULIN RATIO 1.2 (0.8-2.0); ALKALINE PHOSPHATASE 120 IU/L (40-150); ANION GAP 19.4 mmol/L (8-16); BILIRUBIN,URINE NEGATIVE (NEGATIVE); BLOOD UREA NITROGEN 12 mg/dL (7-26); BUN/CREATININE RATIO 14 (6-25); CALCIUM 9.1 mg/dL (8.4-10.2); CARBON DIOXIDE 19 mmol/L (22-29); CHLORIDE 102 mmol/L (98-107); CREATININE, SERUM 0.85 mg/dL (0.72-1.25); EST GLOMERULAR FILTRATION RATE > 60 ML/MIN (60-); GLUCOSE 360 mg/dL (74-118); POTASSIUM 4.4 mmol/L (3.5-5.1); SODIUM 136 mmol/L (136-145); URINE UROBILINOGEN 0.2 mg/dL (0.2 - 1)
--- OUTSIDE RECORDS SUMMARY | 2020-06-23 09:36 | XMS REPORT | Continuity of Care Document ---
Author Author [facility] t Organization [facility] Address [address] [place] [address] Phone Unavailable Care Team Providers Care Movement Assembler Name Role Phone Nancy VILLASENOR M.D. PCP Figueroa BOYD Attphys Unavailable Figueroa BOYD Admphys Unavailable Payers Payer Name Policy Type Policy Number Effective Date Expiration Date Figueroa Berrios o [id number] 2017 00:00:00 [facility] Problems This patient has no known problems. Allergies, Adverse Reactions, Alerts This patient has no known allergies or adverse reactions. Medications Ordered Medication Name Filled Medication Name Start Date Stop Da te Current Medication? Ordering Clinician Indication Dosage Frequency Signature (SIG) Comments Components Source Gabapentin 100 Mg Capsule Gabapentin 100 Mg Capsule Yes Daily [facility] Gabapentin 400 Mg Capsule Gabapentin 400 Mg Capsule Yes 400 Bedtime [facility] Hydrochlorothiazide 25 Mg Tablet Hydrochlorothiazide 25 Mg Tablet Yes 25 Daily [facility] Hydromorphone Hcl 2 Mg Tablet Hydromorphone Hcl 2 Mg Tablet Ye s [facility] Insulin Glargine (Lantus 3ML Pen) 100 Units/1 Ml Inj I nsulin Glargine (Lantus 3ML Pen) 100 Units/1 Ml Inj Yes 20 Bedtime [facility] Insulin Lispro (Humalog) 100 Unit/1 Ml Insuln.pen Insu alexis Lispro (Humalog) 100 Unit/1 Ml Insuln.pen Yes 10 Before Meals [facility] Losartan Potassium 100 Mg Tablet Losartan Potassium 100 Mg Tablet Yes 100 Daily [facility] Methadone Hcl 5 Mg Tablet Methadone Hcl 5 Mg Tablet Yes 5 Daily [facility] Metoprolol Succinate 50 Mg Tab.er.24h Metoprolol Succinate 50 Mg Ta b.er.24h Yes 50 Daily [facility] Rosuvastatin Calcium (Crestor) 10 Mg Tab Rosuvastatin Calcium (Crestor) 10 Mg Tab Yes 10 Bedtime [facility] Farxiga , 10 Mg Oral Farxiga , 10 Mg Oral 2018-09-02 00:00:00 No [address] [facility] Metformin Hcl (Metformin Hcl Er) 500 Mg Tab.er.24, 100 0 Mg Oral Metformin Hcl (Metformin Hcl Er) 500 Mg Tab.er.24, 1000 Mg Oral 2018-09-02 00:00:00 No 1000 Twice A Day [facility] Gabapentin 300 Mg Capsule, 300 Mg Oral Gabapentin 300 Mg Capsule , 300 Mg Oral 2018-08-29 00:00:00 No 300 Bedtime [facility] Methadone Hcl (Methadone) 10 Mg Tab, 10 Mg Oral Methad one Hcl (Methadone) 10 Mg Tab, 10 Mg Oral 2018-08-29 00:00:00 No 10 T [facility] Procedures Procedure Date / Time Performed Performing Clinician [facility] e CT of abdomen and pelvis without contrast 2018-08-30 00:00:[address] [facility] X-ray of chest, two views 2018-08-29 00:00:00 DARRIAN SHELLEY CH, I [facility] Encounters Start Date/Time End Date/Time Encounter Type Admission Type Attendi [facility] Facility Care Department Encounter ID Source 2018-08-29 20:02:00 2018-08-29 20:02:00 Admitted Inpatient 1 KIMBERLY BOYD [facility] [id number] [facility] Results Test Description Test Time Test Comments Results Result Comments Source Bedside Glucose 2018-09-02 11:56:00 Test Item Bedside Glucose (test code = 46650-6) 240 70-120 H Meter ID: [id number] 2018-09-02 05:21:00* Test Item Value Reference Range Interpretation Comments Sodium Level (test code = 2951-2) 138 136-145 [facility] HospitalPotassium Dfiay0772-29-06 05:21:00* Test Item Value Reference Range Interpretation Comments Potassium Level (test code = 2823-3) 3.7 3.5-5.1 [facility] HospitalChloride Ixwac9893-95-26 05:21:00* Test Item Value Reference Range Interpretation Comments Chloride Level (test code = 2075-0) 108 98-107 H [facility] HospitalCarbon Dioxide Kepds5224-74-23 05:21:00* Test Item Value Reference Range Interpretation Comments Carbon Dioxide Level (test code = 2028-9) 20 22-29 L [facility] HospitalAnion Qst1050-22-31 05:21:00* Test Item Value Reference Range Interpretation Comments Anion Gap (test code = 68865-0) 13.7 8-16 [facility] HospitalBlood Urea Fnibssfy4919-73-50 05:21:00* Test Item Value Reference Range Interpretation Comments Blood Urea Nitrogen (test code = 3094-0) 6 7-26 L [facility] HospitalCreatinine2018-12-30 05:21:00* Test Item Value Reference Range Interpretation Comments Creatinine (test code = 2160-0) 0.70 0.72-1.25 L [facility] HospitalBUN/Creatinine Lndml0650-71-13 05:21:00* Test Item Value Reference Range Interpretation Comments BUN/Creatinine Ratio (test code = 3097-3) 9 6-25 [facility] HospitalEstimat Glomerular Filtration Rate 2018-09-02 05:21:00* Test Item Value Reference Range Interpretation Comments Estimat Glomerular Filtration Rate (test code = 455675882) > 60 >60 Ranges were taken from the National Kidney Disease Education Program and the [facility] Kid[facility] Foundation literature.Reference ranges:60 or greater: Myezdv10-37 ( for 3 consecutive months): Chronic kidney disease 15 or less: Kidney failureUT Southwestern William [facility]. [facility]. University HospitalGlucose Dhopf7077-32-16 05:21:00* Test Item Value Reference Range Interpretation Comments Glucose Level (test code = LTV2813) 213 74-118 H [facility] HospitalCalcium Zodbz6144-29-11 05:21:00* Test Item Value Reference Range Interpretation Comments Calcium Level (test code = 10299-4) 8.6 8.4-10.2 [facility] HospitalWhite Blood Zuciw3478-81-30 04:57:00* Test Item Value Reference Range Interpretation Comments White Blood Count (test code = 6690-2) 4.62 4.8-10.8 L [facility] HospitalRed Blood Vqmjc1166-37-59 04:57:00* Test Item Value Reference Range Interpretation Comments Red Blood Count (test code = 789-8) 3.88 4.3-5.7 L [facility] HospitalHemoglobin2018-12-30 04:57:00* Test Item Value Reference Range Interpretation Comments Hemoglobin (test code = 13420-2) 11.3 14.0-18.0 L [facility] HospitalHematocrit2018-12-30 04:57:00* Test Item Value Reference Range Interpretation Comments Hematocrit (test code = 4544-3) 33.4 38.2-49.6 L [facility] HospitalMean Corpuscular Eatnin3412-88-39 04:57:00* Test Item Value Reference Range Interpretation Comments Mean Corpuscular Volume (test code = 787-2) 86.1 81-99 [facility] HospitalMean Corpuscular Jvymxhfdhh9685-35-61 04:57:00* Test Item Value Reference Range Interpretation Comments Mean Corpuscular Hemoglobin (test code = 785-6) 29.1 28-32 [facility] HospitalMean Corpuscular Hemoglobin Concent 2018-09-02 04:57:00* Test Item Value Reference Range Interpretation Comments Mean Corpuscular Hemoglobin Concent (test code = 786-4) 33.8 31-35 [facility] HospitalRed Cell Distribution Akuhb4373-64-81 04:57:00* Test Item Value Reference Range Interpretation Comments Red Cell Distribution Width (test code = 69639-9) 14.0 11.7 -14.4 [facility] HospitalPlatelet Vxmks3569-27-27 04:57:00* Test Item Value Reference Range Interpretation Comments Platelet Count (test code = 777-3) 162 140-360 [facility] HospitalNeutrophils (%) (Auto)2018-09-02 04:57:00 * Test Item Value Reference Range Interpretation Comments Neutrophils (%) (Auto) (test code = 21657-9) 40.0 38.7-80.0 [facility] HospitalLymphocytes (%) (Auto)2018-09-02 04:57:00 * Test Item Value Reference Range Interpretation Comments Lymphocytes (%) (Auto) (test code = 736-9) 43.9 18.0-39.1 H [facility] HospitalMonocytes (%) (Auto)2018-09-02 04:57:00* Test Item Value Reference Range Interpretation Comments Monocytes (%) (Auto) (test code = 5905-5) 10.0 4.4-11.3 [facility] HospitalEosinophils (%) (Auto)2018-09-02 04:57:00 * Test Item Value Reference Range Interpretation Comments Eosinophils (%) (Auto) (test code = 713-8) 4.3 0.0-6.0 [facility] HospitalBasophils (%) (Auto)2018-09-02 04:57:00* Test Item Value Reference Range Interpretation Comments Basophils (%) (Auto) (test code = 706-2) 0.9 0.0-1.0 [facility] HospitalIM GRANULOCYTES %2018-09-02 04:57:00* Test Item Value Reference Range Interpretation Comments IM GRANULOCYTES % (test code = IM GRANULOCYTES %) 0.9 0.0- 1.0 [facility] HospitalNeutrophils # (Auto)2018-09-02 04:57:00* Test Item Value Reference Range Interpretation Comments Neutrophils # (Auto) (test code = 751-8) 1.9 2.1-6.9 L [facility] HospitalLymphocytes # (Auto)2018-09-02 04:57:00* Test Item Value Reference Range Interpretation Comments Lymphocytes # (Auto) (test code = 03853-3) 2.0 1.0-3.2 [facility] HospitalMonocytes # (Auto)2018-09-02 04:57:00* Test Item Value Reference Range Interpretation Comments Monocytes # (Auto) (test code = 742-7) 0.5 0.2-0.8 [facility] HospitalEosinophils # (Auto)2018-09-02 04:57:00* Test Item Value Reference Range Interpretation Comments Eosinophils # (Auto) (test code = 711-2) 0.2 0.0-0.4 [facility] HospitalBasophils # (Auto)2018-09-02 04:57:00* Test Item Value Reference Range Interpretation Comments Basophils # (Auto) (test code = 704-7) 0.0 0.0-0.1 [facility] HospitalAbsolute Immature Granulocyte (auto 2018-09-02 04:57:00* Test Item Value Reference Range Interpretation Comments Absolute Immature Granulocyte (auto (jossy t code = Absolute Immature Granulocyte (auto) 0.04 0-0.1 [facility] HospitalBlood Yjtzzjr7167-65-91 18:37:00* Test Item Value Reference Range Interpretation Comments Blood Culture (test code = 29397539) NO GROWTH AFTER 72 HOURS [facility] HospitalMagnesium Peyjc2628-61-77 06:09:00* Test Item Value Reference Range Interpretation Comments Magnesium Level (test code = 15869-2) 2.1 1.3-2.1 [facility] HospitalTotal Lwcwbmgwc2542-02-50 06:09:00* Test Item Value Reference Range Interpretation Comments Total Bilirubin (test code = 1975-2) 0.5 0.2-1.2 [facility] HospitalAspartate Amino Transf (AST/SGOT) 2018-08-31 06:09:00* Test Item Value Reference Range Interpretation Comments Aspartate Amino Transf (AST/SGOT) (test code = Aspartate Amino Transf (AST/SGOT)) 8 5-34 [facility] HospitalAlanine Aminotransferase (ALT/SGPT) 2018-08-31 06:09:00* Test Item Value Reference Range Interpretation Comments Alanine Aminotransferase (ALT/SGPT) (test code = 1742-6) 8 0-55 [facility] HospitalTotal Ydfqnkm2877-52-81 06:09:00* Test Item Value Reference Range Interpretation Comments Total Protein (test code = 2885-2) 5.4 6.5-8.1 L [facility] HospitalAlbumin2018-12-28 06:09:00* Test Item Value Reference Range Interpretation Comments Albumin (test code = 1751-7) 2.8 3.5-5.0 L [facility] HospitalGlobulin2018-12-28 06:09:00* Test Item Value Reference Range Interpretation Comments Globulin (test code = 31164-9) 2.6 2.3-3.5 [facility] HospitalAlbumin/Globulin Fsupj1664-56-05 06:09:00 * Test Item Value Reference Range Interpretation Comments Albumin/Globulin Ratio (test code = 1759-0) 1.1 0.8-2.0 [facility] HospitalAlkaline Cirkotiwrta5435-07-80 06:09:00* Test Item Value Reference Range Interpretation Comments Alkaline Phosphatase (test code = 6768-6) 62 40-150 [facility] HospitalCT ABDOMEN/PELVIS CK1729-30-95 12:30:00 [facility] [address] [address] Patient Name: ARIELA WANG MR #: [id number] : 1965 Age/Sex: 53/M Req #: [id number] Adm Physician: KIMBERLY BOYD MD Ordered by: KIMBERLY BOYD MD Report #: [id number] Location: ICU Room/Bed: ICU [facility] Procedure: [id number] CT/CT ABDOMEN/PELVIS WO Exam Date: 08/30/18 Exam Karthik e: 1019 REPORT STATUS: Signed EX AM: CT ABDOMEN AND PELVIS without IV CONTRAST DATE: 08/30/2018 7:11 AM Time s tamp on Exam: 10:20 AM INDICATION: Abdominal fullness COMPARISON: None TECHNIQUE: The abdomen and pelvis were scanned using a multidetector helical s canner. Coronal and sagittal reformations were obtained. Routine protocol perf ormed. Active dose reduction parameters were utilized. IV Contrast: No ne Oral Contrast: Gastrografin intermixed with water Radiation Dose: Total D LP 803.99 mGy*cm Estimated effective dose: DLP x 0.015 x size factor FIND INGS: LOWER THORAX: No consolidations LIVER: No masses BILIARY: The gal lbladder is unremarkable. No ductal dilatation. SPLEEN: No masses PANCRE : No masses ADRENALS: No nodules KIDNEYS: Symmetric perfusion. No enhan cing masses. No hydronephrosis. GI TRACT: No distention, wall thickening or evidence of obstruction. Metallic densities at the GE junction. VESSELS: Atherosclerotic calcification within the aorta. PERITONEUM/RETROPERITONEUM: No free air or fluid LYMPH NODES: No lymphadenopathy REPRODUCTIVE ORGANS: Calcification within the prostate gland. BLADDER: Urinary bladder distention SOFT TISSUES: Unremarkable BONES: No suspicious bone lesions. Postoperative fusion at L5-S1 with orthopedic hardware IMPRESSION: 1. Mild urin ming bladder distention. 2. Otherwise no acute abnormality. Signed by: Dr. Barron Elizondo DO on 08/30/2018 12:39 PM Dictated By: BARRON ELIZONDO DO 1239 Transcribed By: SHABNAM TAYLOR on 08/30/18 1239 COPY TO: KIMBERLY BOYD MD Thyroid Stimulating Hormone (TSH)2018-08-30 08:15:00* Test Item Value Reference Range Interpretation Comments Thyroid Stimulating Hormone (TSH) (test code = 23531-4) 1.276 0.350-4.940 [facility] HospitalLipase2018-12-27 07:48:00* Test Item Value Reference Range Interpretation Comments Lipase (test code = 3040-3) 15 8-78 [facility] HospitalHemoglobin A1c Hcwgkmq9091-85-59 07:43:00 * Test Item Value Reference Range Interpretation Comments Hemoglobin A1c Percent (test code = Hemoglobin A1c Percent) 13.3 4.0-7.0 H [facility] HospitalAcetaminophen Ibzdw7551-16-73 19:12:00* Test Item Value Reference Range Interpretation Comments Acetaminophen Level (test code = 32674-3) < 3 10-30 L [facility] HospitalEthyl Alcohol Zwmyq7098-74-85 19:12:00* Test Item Value Reference Range Interpretation Comments Ethyl Alcohol Level (test code = 5643-2) < 10.0 0.0-10.0 [facility]anoalicylates Uzudf4323-57-37 19:12:00* Test Item Value Reference Range Interpretation Comments Salicylates Level (test code = 4024-6) < 5.0 0-30 [facility] HospitalLactic Acid Dxral9411-69-89 18:57:00* Test Item Value Reference Range Interpretation Comments Lactic Acid Level (test code = Lactic Acid Level) 10.3 4.5- 19.8 [facility] HospitalArterial Blood [id number] 18:34:00* Test Item Value Reference Range Interpretation Comments Arterial Blood pH (test code = 2744-1) 7.14 7.31-7.41 LL Results called/hand delivered to DR SHELLEY at 1833 on 08/29/18 by Joy WALTON.[facility] HospitalArterial Blood Partial Pressure CO2 2018-08-29 18:34:00* Test Item Value Reference Range Interpretation Comments Arterial Blood Partial Pressure CO2 (test code = 2018-) 14 41-51 L [facility] HospitalArterial Blood Partial Pressure O2 2018-08-29 18:34:00* Test Item Value Reference Range Interpretation Comments Arterial Blood Partial Pressure O2 (test code = 2018-) 108 80-105 H [facility] HospitalArterial Blood [id number] 18:34:00* Test Item Value Reference Range Interpretation Comments Arterial Blood HCO3 (test code = 1960-4) 5 23-28 L [facility] HospitalArterial Blood Base Eltafg6172-34-93 18:34:00* Test Item Value Reference Range Interpretation Comments Arterial Blood Base Excess (test code = 1925-7) -24.0 -2-3 L [facility] HospitalArterial Blood Oxygen Saturation 2018-08-29 18:34:00* Test Item Value Reference Range Interpretation Comments Arterial Blood Oxygen Saturation (test code = 2708-6) 97.0 95-98 [facility] HospitalFiO22018-12-26 18:34:00* Test Item Value Reference Range Interpretation Comments FiO2 (test code = FiO2) 28 [facility] HospitalUrine Opiates Wlzxde3333-64-41 18:29:00* Test Item Value Reference Range Interpretation Comments Urine Opiates Screen (test code = 44921-8) POSITIVE NEGATIVE H This test provides only a screen. Positive results should be repeated by a confi rmatory test.[facility] HospitalUrine Barbiturates Screen 2018-08-29 18:29:00* Test Item Value Reference Range Interpretation Comments Urine Barbiturates Screen (test code = 673229472) NEGATIVE NEGA TIVE [facility] HospitalUrine Phencyclidine Stqfpc3563-72-06 18:29:00* Test Item Value Reference Range Interpretation Comments Urine Phencyclidine Screen (test code = 16731-2) NEGATIVE NEGAT GERMÁN [facility] HospitalUrine Amphetamines Atfuvf3005-70-84 18:29:00* Test Item Value Reference Range Interpretation Comments Urine Amphetamines Screen (test code = 33518-1) NEGATIVE NEGATI VE [facility] HospitalUrine Methamphetamines Xjaulu7397-69-25 18:29:00* Test Item Value Reference Range Interpretation Comments Urine Methamphetamines Screen (test code = Urine Metha mphetamines Screen) NEGATIVE NEGATIVE [facility] HospitalUrine Benzodiazepines Qdkoil5918-39-68 18:29:00* Test Item Value Reference Range Interpretation Comments Urine Benzodiazepines Screen (test code = 53037-9) NEGATIVE NEG ATIVE [facility] HospitalUrine Cocaine Qqjzlo9867-37-49 18:29:00* Test Item Value Reference Range Interpretation Comments Urine Cocaine Screen (test code = 3398-5) NEGATIVE NEGATIVE [facility] HospitalUrine Cannabinoids Vmzeyv7352-67-07 18:29:00* Test Item Value Reference Range Interpretation Comments Urine Cannabinoids Screen (test code = 20534-4) NEGATIVE NEGATI VE THESE RESULTS ARE FOR MEDICAL TREATMENT ONLYTHIS REPORT CONTAINS UNCONFIR MED SCREENING RESULTS*POSITIVE RESULTS WILL BE CONFIRMED BY REFERENCE LAB UPON R EQUEST CUT-OFFDRUG CLASS CONCENTRATION ng/mLAmphetamines 1000Methamphetamines 1000Cocaine 300Opiate 300Phencyc lidine 25Cannabinoid 50Barbiturates 300Benzodiazepine 300Methadone 300[facility] HospitalU[facility] Methadone Mberge1335-71-98 18:29:00* Test Item Value Reference Range Interpretation Comments Urine Methadone Screen (test code = 23435-5) POSITIVE NEGATIVE H This test provides only a screen. Positive results should be repeated by a confi rmatory test.THESE RESULTS ARE FOR MEDICAL TREATMENT ONLYTHIS REPORT CONT AINS UNCONFIRMED SCREENING RESULTS*POSITIVE RESULTS WILL BE CONFIRMED BY REFEREN CE LAB UPON REQUEST CUT-OFFDRUG CLASS CON CENTRATION ng/mLAmphetamines 1000Methamp hetamines 1000Cocaine Metabolite 300Opiate 300Phencyclidine 25Cannabinoid 50Barbiturates 300Benzodiazepine 300Methadone 300 [facility] HospitalCHE[facility] 2 [id number] 17:48:00 [facility] [address] [place] [address] Patient Name: ARIELA WANG MR #: [id number] : 1965 Age/Sex: 53/M Req #: [id number] Adm Physician: Ordered by: DARRIAN SHELLEY MD Report #: [id number] Location: ER Room/Bed: Procedure: [id number] DX/ CHEST 2 VIEWS Exam Date: 08/29/18 Exam Time: 1701 REPORT STATUS: Signed EXAMINATION: CHEST 2 VIEWS INDICATION: Shortness of breath COMPARISON: None FINDINGS: PA and lateral views TUBES and LINES: None. LUNGS: Lungs are well inflated. Lungs are clear. There is no evidence of p neumonia or pulmonary edema. PLEURA: No pleural effusion or pneumothorax. HEART AND MEDIASTINUM: The cardiomediastinal silhouette is unremarkable. BONES AND SOFT TISSUES: No acute osseous lesion. Soft tissues are un remarkable. UPPER ABDOMEN: No free air under the diaphragm. IMPRES JUDAH: No acute thoracic abnormality. Signed by: Dr. Maury Glez M.D. on 08/29/2018 5:48 PM Dictated By: MAURY GLEZ MD 47 Transcribed By: CHERIE on 08/29/181747 COPY TO: DARRIAN SHELLEY MD Urine [id number] 17:26:00* Test Item Value Reference Range Interpretation Comments Urine WBC (test code = 5821-4) NONE 0-5 [facility] HospitalUrine [id number] 17:26:00* Test Item Value Reference Range Interpretation Comments Urine RBC (test code = 79941-0) 0-5 0-5 [facility] HospitalUrine Xvqysgph0449-85-86 17:26:00* Test Item Value Reference Range Interpretation Comments Urine Bacteria (test code = 01423-5) NONE NONE [facility] HospitalUrine Epithelial Vjlmo2594-92-98 17:26:00 * Test Item Value Reference Range Interpretation Comments Urine Epithelial Cells (test code = 22025-8) RARE NONE [facility] HospitalUrine Tpctl7752-28-47 17:19:00* Test Item Value Reference Range Interpretation Comments Urine Color (test code = 5778-6) YELLOW YELLOW [facility] HospitalUrine Yeoohmy2955-23-07 17:19:00* Test Item Value Reference Range Interpretation Comments Urine Clarity (test code = 10245-6) CLEAR CLEAR [facility] HospitalUrine Specific Rbqabho4264-06-49 17:19:00 * Test Item Value Reference Range Interpretation Comments Urine Specific [place] (test code = 5811-5) 1.030 1.010-1.02 5 H [facility] HospitalUrine [id number] 17:19:00* Test Item Value Reference Range Interpretation Comments Urine pH (test code = 32205-6) 5 5-7 [facility] HospitalUrine Leukocyte Gwajjbnl5336-12-39 17:19:00* Test Item Value Reference Range Interpretation Comments Urine Leukocyte Esterase (test code = 5799-2) NEGATIVE NEGATIVE [facility] HospitalUrine Pbwnnwr5547-10-76 17:19:00* Test Item Value Reference Range Interpretation Comments Urine Nitrite (test code = 26986-1) NEGATIVE NEGATIVE [facility] HospitalUrine Fkhmvxd1800-71-48 17:19:00* Test Item Value Reference Range Interpretation Comments Urine Protein (test code = 5804-0) 1+ NEGATIVE H [facility] Glucose (UA)2018-08-29 17:19:00* Test Item Value Reference Range Interpretation Comments Urine Glucose (UA) (test code = 2349-9) 2+ [facility]IVE [facility] Hicxzhb0818-04-48 17:19:00* Test Item Value Reference Range Interpretation Comments Urine Ketones (test code = 94139-5) 3+ NEGATIVE H [facility] Rdbwdfitqicx6389-45-52 17:19:00* Test Item Value Reference Range Interpretation Comments Urine Urobilinogen (test code = 13500-4) 0.2 0.2-1 [facility] Vgggaigtu3580-06-22 17:19:00* Test Item Value Reference Range Interpretation Comments Urine Bilirubin (test code = 1978-6) NEGATIVE NEGATIVE [facility] Omjau6958-29-55 17:19:00* Test Item Value Reference Range Interpretation Comments Urine Blood (test code = 01488-8) 1+ NEGATIVE H [facility]
[2020-06-23 09:47] LABS: CREATINE KINASE MB 1.8 ng/mL (0-5.0)
[2020-06-23 09:52] LABS: ABG HCO3 19 mmol/L (22-26); ABG PCO2 34 mmHg (35-45); ABG PH 7.36 (7.35-7.45); ABG PO2 72 mmHg (80-105); ABG TCO2 20
[2020-06-23 09:53] LABS: BACTERIA,URINE RARE /HPF; EPITHELIAL CELLS,URINE RARE /LPF; RBC,URINE 0-5 /HPF (0-5); WBC,URINE (MAN) 0-5 /HPF (0-5)
[2020-06-23] MEDS ORDERED: INSULIN REGULAR, HUMAN 100 UNIT/1 ML 3ML VIAL IV ONE (10:15)
[2020-06-23] MEDS ORDERED: INSULIN REGULAR, HUMAN 100 UNIT/1 ML 3ML VIAL ONE (10:18)
[2020-06-23] MEDS ORDERED: DEXTROSE 50% SYRINGE 50 ML IV PRN (10:30)
[2020-06-23] MEDS ORDERED: ASPIRIN 81 MG CHEW TAB PO ONE (10:30)
--- OUTSIDE RECORDS SUMMARY | 2020-06-23 10:37 | XMS REPORT | Continuity of Care Document ---
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 PCP Figueroa BOYD Attphys Unavailable Figueroa BOYD Admphys Unavailable Payers Payer Name Policy Type Policy Number Effective Date Expiration Date Figueroa Berrios o [id number] 2017 00:00:00 [facility] Problems This patient has no known problems. Allergies, Adverse Reactions, Alerts This patient has no known allergies or adverse reactions. Medications Ordered Medication Name Filled Medication Name Start Date Stop Da te Current Medication? Ordering Clinician Indication Dosage Frequency Signature (SIG) Comments Components Source Gabapentin 100 Mg Capsule Gabapentin 100 Mg Capsule Yes Daily [facility] Gabapentin 400 Mg Capsule Gabapentin 400 Mg Capsule Yes 400 Bedtime [facility] Hydrochlorothiazide 25 Mg Tablet Hydrochlorothiazide 25 Mg Tablet Yes 25 Daily [facility] Hydromorphone Hcl 2 Mg Tablet Hydromorphone Hcl 2 Mg Tablet Ye s [facility] Insulin Glargine (Lantus 3ML Pen) 100 Units/1 Ml Inj I nsulin Glargine (Lantus 3ML Pen) 100 Units/1 Ml Inj Yes 20 Bedtime [facility] Insulin Lispro (Humalog) 100 Unit/1 Ml Insuln.pen Insu alexis Lispro (Humalog) 100 Unit/1 Ml Insuln.pen Yes 10 Before Meals [facility] Losartan Potassium 100 Mg Tablet Losartan Potassium 100 Mg Tablet Yes 100 Daily [facility] Methadone Hcl 5 Mg Tablet Methadone Hcl 5 Mg Tablet Yes 5 Daily [facility] Metoprolol Succinate 50 Mg Tab.er.24h Metoprolol Succinate 50 Mg Ta b.er.24h Yes 50 Daily [facility] Rosuvastatin Calcium (Crestor) 10 Mg Tab Rosuvastatin Calcium (Crestor) 10 Mg Tab Yes 10 Bedtime [facility] Farxiga , 10 Mg Oral Farxiga , 10 Mg Oral 2018-09-02 00:00:00 No 10 Daily [facility] Metformin Hcl (Metformin Hcl Er) 500 Mg Tab.er.24, 100 0 Mg Oral Metformin Hcl (Metformin Hcl Er) 500 Mg Tab.er.24, 1000 Mg Oral 2018-09-02 00:00:00 No 1000 Twice A Day [facility] Gabapentin 300 Mg Capsule, 300 Mg Oral Gabapentin 300 Mg Capsule , 300 Mg Oral 2018-08-29 00:00:00 No 300 Bedtime [facility] Methadone Hcl (Methadone) 10 Mg Tab, 10 Mg Oral Methad one Hcl (Methadone) 10 Mg Tab, 10 Mg Oral 2018-08-29 00:00:00 No 10 T [facility] Procedures Procedure Date / Time Performed Performing Clinician [facility] of abdomen and pelvis without contrast 2018-08-30 00:00:[address] [facility] X-ray of chest, two views 2018-08-29 00:00:00 DARRIAN SHELLEY CH, I [facility] Encounters Start Date/Time End Date/Time Encounter Type Admission Type Attendi [facility] Facility Care Department Encounter ID Source 2018-08-29 20:02:00 2018-08-29 20:02:00 Admitted Inpatient 1 KIMBERLY BOYD [facility] [id number] [facility] Results Test Description Test Time Test Comments Results Result Comments Source Bedside Glucose 2018-09-02 11:56:00 Test Item Bedside Glucose (test code = 82174-8) 240 70-120 H Meter ID: [id number]odium Level 2018-09-02 05:21:00* Test Item Value Reference Range Interpretation Comments Sodium Level (test code = 2951-2) 138 136-145 [facility]vinePotassium Kxczo0878-74-75 05:21:00* Test Item Value Reference Range Interpretation Comments Potassium Level (test code = 2823-3) 3.7 3.5-5.1 [facility]vineChloride Toiwb9444-01-37 05:21:00* Test Item Value Reference Range Interpretation Comments Chloride Level (test code = 2075-0) 108 98-107 H [facility]vineCarbon Dioxide Jicmg2650-72-09 05:21:00* Test Item Value Reference Range Interpretation Comments Carbon Dioxide Level (test code = 2028-9) 20 22-29 L [facility]vineAnion Kbl5766-02-96 05:21:00* Test Item Value Reference Range Interpretation Comments Anion Gap (test code = 63814-6) 13.7 8-16 [facility]vineBlood Urea Cfymmbuc1879-93-51 05:21:00* Test Item Value Reference Range Interpretation Comments Blood Urea Nitrogen (test code = 3094-0) 6 7-26 L [facility]vineCreatinine2018-12-30 05:21:00* Test Item Value Reference Range Interpretation Comments Creatinine (test code = 2160-0) 0.70 0.72-1.25 L [facility]vineBUN/Creatinine Hrqsd0433-47-26 05:21:00* Test Item Value Reference Range Interpretation Comments BUN/Creatinine Ratio (test code = 3097-3) 9 6-25 [facility] GrapevineEstimat Glomerular Filtration Rate 2018-09-02 05:21:00* Test Item Value Reference Range Interpretation Comments Estimat Glomerular Filtration Rate (test code = 198128542) > 60 >60 Ranges were taken from the National Kidney Disease Education Program and the [facility] [employer] literature.Reference ranges:60 or greater: Zbeczd07-38 ( for 3 consecutive months): Chronic kidney disease 15 or less: Kidney failureBaylor Scott & White Medical Center – GrapevineGlucose Hkecz5710-43-03 05:21:00* Test Item Value Reference Range Interpretation Comments Glucose Level (test code = EVN5167) 213 74-118 H [facility]vineCalcium Htmbb2216-58-09 05:21:00* Test Item Value Reference Range Interpretation Comments Calcium Level (test code = 64473-2) 8.6 8.4-10.2 [facility]vineWhite Blood Vgjrj9242-23-37 04:57:00* Test Item Value Reference Range Interpretation Comments White Blood Count (test code = 6690-2) 4.62 4.8-10.8 L [facility] GrapevineRed Blood Powxb1446-09-21 04:57:00* Test Item Value Reference Range Interpretation Comments Red Blood Count (test code = 789-8) 3.88 4.3-5.7 L [facility]vineHemoglobin2018-12-30 04:57:00* Test Item Value Reference Range Interpretation Comments Hemoglobin (test code = 25126-3) 11.3 14.0-18.0 L [facility]vineHematocrit2018-12-30 04:57:00* Test Item Value Reference Range Interpretation Comments Hematocrit (test code = 4544-3) 33.4 38.2-49.6 L [facility] GrapevineMean Corpuscular Lkqsgw3843-43-87 04:57:00* Test Item Value Reference Range Interpretation Comments Mean Corpuscular Volume (test code = 787-2) 86.1 81-99 [facility]vineMean Corpuscular Kobqbgcjlv3396-54-29 04:57:00* Test Item Value Reference Range Interpretation Comments Mean Corpuscular Hemoglobin (test code = 785-6) 29.1 28-32 [facility] GrapevineMean Corpuscular Hemoglobin Concent 2018-09-02 04:57:00* Test Item Value Reference Range Interpretation Comments Mean Corpuscular Hemoglobin Concent (test code = 786-4) 33.8 31-35 [facility] GrapevineRed Cell Distribution Gmvjt2914-84-86 04:57:00* Test Item Value Reference Range Interpretation Comments Red Cell Distribution Width (test code = 76022-8) 14.0 11.7 -14.4 [facility] GrapevinePlatelet Znpfi8299-71-50 04:57:00* Test Item Value Reference Range Interpretation Comments Platelet Count (test code = 777-3) 162 140-360 [facility] G[facility]vineNeutrophils (%) (Auto)2018-09-02 04:57:00 * Test Item Value Reference Range Interpretation Comments Neutrophils (%) (Auto) (test code = 16422-6) 40.0 38.7-80.0 [facility]vineLymphocytes (%) (Auto)2018-09-02 04:57:00 * Test Item Value Reference Range Interpretation Comments Lymphocytes (%) (Auto) (test code = 736-9) 43.9 18.0-39.1 H [facility]vineMonocytes (%) (Auto)2018-09-02 04:57:00* Test Item Value Reference Range Interpretation Comments Monocytes (%) (Auto) (test code = 5905-5) 10.0 4.4-11.3 [facility]vineEosinophils (%) (Auto)2018-09-02 04:57:00 * Test Item Value Reference Range Interpretation Comments Eosinophils (%) (Auto) (test code = 713-8) 4.3 0.0-6.0 [facility]vineBasophils (%) (Auto)2018-09-02 04:57:00* Test Item Value Reference Range Interpretation Comments Basophils (%) (Auto) (test code = 706-2) 0.9 0.0-1.0 [facility] GrapevineIM GRANULOCYTES %2018-09-02 04:57:00* Test Item Value Reference Range Interpretation Comments IM GRANULOCYTES % (test code = IM GRANULOCYTES %) 0.9 0.0- 1.0 [facility]vineNeutrophils # (Auto)2018-09-02 04:57:00* Test Item Value Reference Range Interpretation Comments Neutrophils # (Auto) (test code = 751-8) 1.9 2.1-6.9 L [facility]vineLymphocytes # (Auto)2018-09-02 04:57:00* Test Item Value Reference Range Interpretation Comments Lymphocytes # (Auto) (test code = 72489-3) 2.0 1.0-3.2 [facility]vineMonocytes # (Auto)2018-09-02 04:57:00* Test Item Value Reference Range Interpretation Comments Monocytes # (Auto) (test code = 742-7) 0.5 0.2-0.8 [facility]vineEosinophils # (Auto)2018-09-02 04:57:00* Test Item Value Reference Range Interpretation Comments Eosinophils # (Auto) (test code = 711-2) 0.2 0.0-0.4 [facility]vineBasophils # (Auto)2018-09-02 04:57:00* Test Item Value Reference Range Interpretation Comments Basophils # (Auto) (test code = 704-7) 0.0 0.0-0.1 [facility] GrapevineAbsolute Immature Granulocyte (auto 2018-09-02 04:57:00* Test Item Value Reference Range Interpretation Comments Absolute Immature Granulocyte (auto (jossy t code = Absolute Immature Granulocyte (auto) 0.04 0-0.1 [facility] GrapevineBlood Hnybgsj3969-67-55 18:37:00* Test Item Value Reference Range Interpretation Comments Blood Culture (test code = 55243348) NO GROWTH AFTER 72 HOURS [facility] GrapevineMagnesium Veszb3715-08-56 06:09:00* Test Item Value Reference Range Interpretation Comments Magnesium Level (test code = 60276-1) 2.1 1.3-2.1 [facility] GrapevineTotal Gnkledokb3022-78-95 06:09:00* Test Item Value Reference Range Interpretation Comments Total Bilirubin (test code = 1975-2) 0.5 0.2-1.2 [facility] GrapevineAspartate Amino Transf (AST/SGOT) 2018-08-31 06:09:00* Test Item Value Reference Range Interpretation Comments Aspartate Amino Transf (AST/SGOT) (test code = Aspartate Amino Transf (AST/SGOT)) 8 5-34 [facility] GrapevineAlanine Aminotransferase (ALT/SGPT) 2018-08-31 06:09:00* Test Item Value Reference Range Interpretation Comments Alanine Aminotransferase (ALT/SGPT) (test code = 1742-6) 8 0-55 [facility] GrapevineTotal Uovjmbk0249-35-26 06:09:00* Test Item Value Reference Range Interpretation Comments Total Protein (test code = 2885-2) 5.4 6.5-8.1 L [facility] GrapevineAlbumin2018-12-28 06:09:00* Test Item Value Reference Range Interpretation Comments Albumin (test code = 1751-7) 2.8 3.5-5.0 L [facility] G[facility]vineGlobulin2018-12-28 06:09:00* Test Item Value Reference Range Interpretation Comments Globulin (test code = 44701-5) 2.6 2.3-3.5 [facility] GrapevineAlbumin/Globulin Dvvzl9632-37-59 06:09:00 * Test Item Value Reference Range Interpretation Comments Albumin/Globulin Ratio (test code = 1759-0) 1.1 0.8-2.0 [facility] GrapevineAlkaline Sylburwlskv4943-51-86 06:09:00* Test Item Value Reference Range Interpretation Comments Alkaline Phosphatase (test code = 6768-6) 62 40-150 [facility] GrapevineCT ABDOMEN/PELVIS YQ4423-42-56 12:30:00 [facility] [address] [address] Patient Name: ARIELA WANG MR #: [id number] : 1965 Age/Sex: 53/M Req #: [id number] Adm Physician: KIMBERLY BOYD MD Ordered by: KIMBERLY BOYD MD Report #: [id number] Location: ICU Room/Bed: ICU formerly [facility] Procedure: [id number] CT/CT ABDOMEN/PELVIS WO Exam Date: 08/30/18 Exam [...] Thyroid Stimulating Hormone (TSH) (test code = 06772-8) 1.276 0.350-4.940 [facility] GrapevineLipase2018-12-27 07:48:00* Test Item Value Reference Range Interpretation Comments Lipase (test code = 3040-3) 15 8-78 [facility] GrapevineHemoglobin A1c Nksqmdg7817-89-00 07:43:00 * Test Item Value Reference Range Interpretation Comments Hemoglobin A1c Percent (test code = Hemoglobin A1c Percent) 13.3 4.0-7.0 H [facility] GrapevineAcetaminophen Fgtkz8605-53-17 19:12:00* Test Item Value Reference Range Interpretation Comments Acetaminophen Level (test code = 78585-6) < 3 10-30 L [facility] GrapevineEthyl Alcohol Gszqc9477-78-14 19:12:00* Test Item Value Reference Range Interpretation Comments Ethyl Alcohol Level (test code = 5643-2) < 10.0 0.0-10.0 [facility]viewalicylates Sijvk7646-67-34 19:12:00* Test Item Value Reference Range Interpretation Comments Salicylates Level (test code = 4024-6) < 5.0 0-30 [facility] GrapevineLactic Acid Lhnjt7899-29-11 18:57:00* Test Item Value Reference Range Interpretation Comments Lactic Acid Level (test code = Lactic Acid Level) 10.3 4.5- 19.8 [facility] GrapevineArterial Blood qW1283-92-49 18:34:00* Test Item Value Reference Range Interpretation Comments Arterial Blood pH (test code = 2744-1) 7.14 7.31-7.41 LL Results called/hand delivered to DR SHELLEY at 1833 on 08/29/18 by Jyo WALTON.[facility] GrapevineArterial Blood Partial Pressure CO2 2018-08-29 18:34:00* Test Item Value Reference Range Interpretation Comments Arterial Blood Partial Pressure CO2 (test code = 2018-) 14 41-51 L [facility] GrapevineArterial Blood Partial Pressure O2 2018-08-29 18:34:00* Test Item Value Reference Range Interpretation Comments Arterial Blood Partial Pressure O2 (test code = 2018-) 108 80-105 H [facility] GrapevineArterial Blood PQH41600-65-09 18:34:00* Test Item Value Reference Range Interpretation Comments Arterial Blood HCO3 (test code = 1960-4) 5 23-28 L [facility] GrapevineArterial Blood Base Oficoq5849-86-28 18:34:00* Test Item Value Reference Range Interpretation Comments Arterial Blood Base Excess (test code = 1925-7) -24.0 -2-3 L [facility] GrapevineArterial Blood Oxygen Saturation 2018-08-29 18:34:00* Test Item Value Reference Range Interpretation Comments Arterial Blood Oxygen Saturation (test code = 2708-6) 97.0 95-98 [facility] GrapevineFiO22018-12-26 18:34:00* Test Item Value Reference Range Interpretation Comments FiO2 (test code = FiO2) 28 [facility] GrapevineUrine Opiates Lhgqwt4803-04-05 18:29:00* Test Item Value Reference Range Interpretation Comments Urine Opiates Screen (test code = 20689-0) POSITIVE NEGATIVE H This test provides only a screen. Positive results should be repeated by a confi rmatory test.[facility] GrapevineUrine Barbiturates Screen 2018-08-29 18:29:00* Test Item Value Reference Range Interpretation Comments Urine Barbiturates Screen (test code = 189090742) NEGATIVE NEGA TIVE [facility] GrapevineUrine Phencyclidine Pfvbju6856-74-07 18:29:00* Test Item Value Reference Range Interpretation Comments Urine Phencyclidine Screen (test code = 77397-5) NEGATIVE NEGAT GERMÁN [facility] GrapevineUrine Amphetamines Qdlbfo4715-19-02 18:29:00* Test Item Value Reference Range Interpretation Comments Urine Amphetamines Screen (test code = 67330-9) NEGATIVE NEGATI VE [facility] GrapevineUrine Methamphetamines Cuedex8366-04-86 18:29:00* Test Item Value Reference Range Interpretation Comments Urine Methamphetamines Screen (test code = Urine Metha mphetamines Screen) NEGATIVE NEGATIVE [facility] G[facility]vineUrine Benzodiazepines Eqmpbe8998-32-02 18:29:00* Test Item Value Reference Range Interpretation Comments Urine Benzodiazepines Screen (test code = 77087-2) NEGATIVE NEG ATIVE [facility] GrapevineUrine Cocaine Rvyjfn0352-03-33 18:29:00* Test Item Value Reference Range Interpretation Comments Urine Cocaine Screen (test code = 3398-5) NEGATIVE NEGATIVE [facility] GrapevineUrine Cannabinoids Gumggx7121-35-06 18:29:00* Test Item Value Reference Range Interpretation Comments Urine Cannabinoids Screen (test code = 20130-4) NEGATIVE NEGATI VE THESE RESULTS ARE FOR MEDICAL TREATMENT ONLYTHIS REPORT CONTAINS UNCONFIR MED SCREENING RESULTS*POSITIVE RESULTS WILL BE CONFIRMED BY REFERENCE LAB UPON R EQUEST CUT-OFFDRUG CLASS CONCENTRATION ng/mLAmphetamines 1000Methamphetamines 1000Cocaine 300Opiate 300Phencyc lidine 25Cannabinoid 50Barbiturates 300Benzodiazepine 300Methadone 300[facility] CenterUrine Methadone Tbwkka5668-51-74 18:29:00* Test Item Value Reference Range Interpretation Comments Urine Methadone Screen (test code = 83985-2) POSITIVE NEGATIVE H This test provides only a screen. Positive results should be repeated by a confi rmatory test.THESE RESULTS ARE FOR MEDICAL TREATMENT ONLYTHIS REPORT CONT AINS UNCONFIRMED SCREENING RESULTS*POSITIVE RESULTS WILL BE CONFIRMED BY REFEREN CE LAB UPON REQUEST CUT-OFFDRUG CLASS CON CENTRATION ng/mLAmphetamines 1000Methamp hetamines 1000Cocaine Metabolite 300Opiate 300Phencyclidine 25Cannabinoid 50Barbiturates 300Benzodiazepine 300Methadone 300 [facility] CenterCHEST 2 NHPCX4931-11-64 17:48:00 [facility] [address] [place] [address] Patient Name: ARIELA WANG MR #: [id number] : 1965 Age/Sex: 53/M Req #: [id number] Adm Physician: Ordered by: DARRIAN SHELLEY MD Report #: [id number] Location: ER Room/Bed: Procedure: [id number] DX/ CHEST 2 VIEWS Exam Date: 08/29/18 [...] 08/29/181747 COPY TO: DARRIAN SHELLEY MD Urine BBO0895-85-58 17:26:00* Test Item Value Reference Range Interpretation Comments Urine WBC (test code = 5821-4) NONE 0-5 [facility]vineUrine [id number] 17:26:00* Test Item Value Reference Range Interpretation Comments Urine RBC (test code = 81508-5) 0-5 0-5 [facility]vineUrine Xpbojudh4381-65-88 17:26:00* Test Item Value Reference Range Interpretation Comments Urine Bacteria (test code = 77592-6) NONE NONE [facility]vineUrine Epithelial Bfizj4645-29-96 17:26:00 * Test Item Value Reference Range Interpretation Comments Urine Epithelial Cells (test code = 33983-2) RARE NONE [facility] GrapevineUrine Rphnj2384-01-29 17:19:00* Test Item Value Reference Range Interpretation Comments Urine Color (test code = 5778-6) YELLOW YELLOW [facility]vineUrine Rxaaytu0170-66-74 17:19:00* Test Item Value Reference Range Interpretation Comments Urine Clarity (test code = 47164-1) CLEAR CLEAR [facility] G[facility]vineUrine Specific Uaybmxm7014-30-24 17:19:00 * Test Item Value Reference Range Interpretation Comments Urine Specific [place] (test code = 5811-5) 1.030 1.010-1.02 5 H [facility] G[facility]vineUrine hZ4990-02-69 17:19:00* Test Item Value Reference Range Interpretation Comments Urine pH (test code = 29892-0) 5 5-7 [facility]vineUrine Leukocyte Nhjuhbtg6598-19-14 17:19:00* Test Item Value Reference Range Interpretation Comments Urine Leukocyte Esterase (test code = 5799-2) NEGATIVE NEGATIVE [facility]vineUrine Edarrmu9908-54-28 17:19:00* Test Item Value Reference Range Interpretation Comments Urine Nitrite (test code = 69677-3) NEGATIVE NEGATIVE [facility]vineUrine Ghdwlvj1478-99-41 17:19:00* Test Item Value Reference Range Interpretation Comments Urine Protein (test code = 5804-0) 1+ NEGATIVE H [facility] Glucose (UA)2018-08-29 17:19:00* Test Item Value Reference Range Interpretation Comments Urine Glucose (UA) (test code = 2349-9) 2+ NEGATIVE H [facility]vineUrine Yqoeuhn4223-32-88 17:19:00* Test Item Value Reference Range Interpretation Comments Urine Ketones (test code = 86867-0) 3+ NEGATIVE H [facility] G[facility]vineUrine Tpygvdvdlvut0683-85-97 17:19:00* Test Item Value Reference Range Interpretation Comments Urine Urobilinogen (test code = 11935-7) 0.2 0.2-1 [facility]vineUrine Woywnennu4825-79-92 17:19:00* Test Item Value Reference Range Interpretation Comments Urine Bilirubin (test code = 1978-6) NEGATIVE NEGATIVE [facility]vineUrine Bkyiv8079-02-90 17:19:00* Test Item Value Reference Range Interpretation Comments Urine Blood (test code = 40266-6) 1+ NEGATIVE H [facility]
--- NOTE | 2020-06-23 11:15 | Diagnostic Imaging Report ---
TECHNIQUE: Frontal view of the chest. INDICATION: ^palpitations COMPARISON: 08/29/2018 IMPRESSION: Lines and hardware: None. Heart and mediastinum: Unremarkable. Lungs and pleura: No focal airspace consolidation. No pleural effusion. No pneumothorax. Soft tissues and bones: No acute abnormality. Signed by: Iftikhar Bonilla MD on 06/23/2020 11:11 AM
[2020-06-23] MEDS: SODIUM CHLORIDE 0.9% 1000ML 1,000 ML IV SCH ×2 (11:28→18:20)
[2020-06-23] MEDS: MORPHINE SULFATE INJ 4 MG/ML INJ 1ML IV PRN ×4 (11:28→23:39)
--- NOTE | 2020-06-23 12:23 | Consultation ---
DATE OF CONSULTATION: Cardiology Consultation REASON FOR CONSULTATION: Palpitations. HISTORY OF PRESENT ILLNESS: This is a 55-year-old man with a history of hypertension, hyperlipidemia, diabetes mellitus, and a family history of cardiovascular disease, who presented to the emergency department with elevated blood glucose levels and palpitations associated with lightheadedness. He denies any chest pain, shortness of breath, or syncopal events. He states that his palpitations are described as elevated heart rate with a pounding sensation, mild to moderate intensity, occur at rest, lasts for minutes, no significant irregularity sensation to his palpitations. No other exacerbating or relieving factors. He has no prior cardiac history. No recent cardiac testing. He states that his father had a heart transplant in his 50s and his brother has coronary artery disease. REVIEW OF SYSTEMS: A 12-point review of system was conducted, is negative except as stated above in the HPI. PAST MEDICAL HISTORY: As stated above in the HPI. PAST SURGICAL HISTORY: Appendectomy, hernia repair, orthopedic surgery. SOCIAL HISTORY: No illicit drug, alcohol, or tobacco use. ALLERGIES: NO KNOWN DRUG ALLERGIES. MEDICATIONS: See medications reconciliation form. FAMILY HISTORY: June 22, 2020coronary disease and cardiac transplantation in his father. PHYSICAL EXAMINATION: VITAL SIGNS: Temperature is 97.8, heart rate is 84, respirations are 11, blood pressure is 152/97 ox saturation 95% on room air general well appearing, well built, no apparent distress. Alert and oriented x3. HEAD: Normocephalic and atraumatic. Eyes, the extraocular muscles are intact conjunctivae clear neck no JVD. No bruits. CARDIOVASCULAR: Regular rate and rhythm. LUNGS: Clear to auscultation. ABDOMEN: Soft, nontender, nondistended. EXTREMITIES: No clubbing, cyanosis, or edema. VASCULAR: 2+ pulses. SKIN: Warm, dry intact. NEUROLOGIC: No focal deficits noted. Cranial nerves grossly intact. PSYCHIATRIC: Normal mood and affect. LABORATORY DATA: Reviewed. Hemoglobin 15, white blood cell count 12.5, creatinine 0.8, potassium 4.4. Troponin 0.019. A 12-lead electrocardiogram showed normal sinus rhythm with poor R-wave progression. Telemetry monitoring shows normal sinus rhythm. Chest x-ray shows no acute cardiopulmonary abnormality. IMPRESSIONS: 1. Palpitations. 2. Hyperglycemia. 3. Hypertension. 4. Diabetes mellitus. 5. Hyperlipidemia. 6. Family history of ischemic heart disease. RECOMMENDATIONS: Continue to rule out for acute myocardial infarction. Obtain a 2D echocardiogram. Monitor on telemetry. Diabetes mellitus treatment per primary team. Titrate antihypertensives. Continue statin and start aspirin. If the echocardiogram was within normal limits and he ruled out for acute myocardial infarction, he may be discharged from a cardiovascular standpoint with outpatient followup for stress testing. Dinesh Gauthier DO BM/MODL /[id number]
[2020-06-23] MEDS: INSULIN REGULAR, HUMAN 100 UNIT/1 ML 3ML VIAL SQ SCH ×3 (12:51→21:10)
[2020-06-23 14:17] VITALS: BP 146/90
[2020-06-23 17:21] LABS: CREATINE KINASE MB 1.3 ng/mL (0-5.0)
[2020-06-23 17:44] LABS: BLOOD UREA NITROGEN 12 mg/dL (7-26); BUN/CREATININE RATIO 15 (6-25); CALCIUM 8.8 mg/dL (8.4-10.2); CARBON DIOXIDE 21 mmol/L (22-29); CHLORIDE 105 mmol/L (98-107); EST GLOMERULAR FILTRATION RATE > 60 ML/MIN (60-); GLUCOSE 272 mg/dL (74-118); SODIUM 138 mmol/L (136-145)
[2020-06-23] MEDS ORDERED: MAGNESIUM OXIDE 400 MG TAB PO ONE (18:30)
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
[2020-06-23] MEDS: ONDANSETRON HCL INJ 2MG/ML 2ML 2 MG/ML VIAL IV PRN ×2 (19:18→23:38)
[2020-06-23 20:00] VITALS: BP 128/77
[2020-06-23 21:00] VITALS: BP 128/77
[2020-06-23] MEDS ORDERED: NON-FORMULARY MEDICATION (Insulin Glargine (Lantus 3ML Pen) 20 UNITS) SQ SCH (21:00)
[2020-06-23] MEDS ORDERED: SIMVASTATIN 40 MG TAB PO SCH (21:00)
[2020-06-23] MEDS ORDERED: SIMVASTATIN 20 MG TAB PO SCH (21:00)
[2020-06-23] MEDS ORDERED: INSULIN GLARGINE 100 UNITS/ML VIAL SQ SCH (21:00)
[2020-06-24] VITALS: BP 139/72
--- NOTE | 2020-06-24 02:57 | NUR ---
Ambulates and voided.no chest pain voiced.call light within reach.instructed to call for assistance as needed.
[2020-06-24] MEDS: SODIUM CHLORIDE 0.9% 1000ML 1,000 ML IV SCH ×2 (03:12→10:45)
[2020-06-24 04:00] VITALS: BP 127/83
[2020-06-24] MEDS: ONDANSETRON HCL INJ 2MG/ML 2ML 2 MG/ML VIAL IV PRN ×2 (04:02→08:25)
[2020-06-24] MEDS: MORPHINE SULFATE INJ 4 MG/ML INJ 1ML IV PRN ×2 (04:07→08:24)
[2020-06-24 06:37] LABS: BASOPHILS # (AUTO) 0.1 (0.0-0.1); BASOPHILS % 0.9 % (0.0-1.0); EOSINOPHILS # (AUTO) 0.3 (0.0-0.4); EOSINOPHILS % 3.5 % (0.0-6.0); HEMATOCRIT 39.3 % (38.2-49.6); HEMOGLOBIN 13.2 g/dL (14.0-18.0); LYMPHOCYTES # (AUTO) 2.5 (1.0-3.2); LYMPHOCYTES % 29.5 % (18.0-39.1); MEAN CORPUSCULAR HEMOGLOBIN 28.4 pg (28-32); MEAN CORPUSCULAR HGB CONC 33.6 g/dL (31-35); MEAN CORPUSCULAR VOLUME 84.5 fL (81-99); MONOCYTES # (AUTO) 0.7 (0.2-0.8); MONOCYTES % 7.7 % (4.4-11.3); NEUTROPHILS # (AUTO) 4.9 (2.1-6.9); NEUTROPHILS % 57.3 % (38.7-80.0); PLATELET COUNT 250 x10e3/uL (140-360); RED BLOOD COUNT 4.65 x10e6/uL (4.3-5.7); RED CELL DISTRIBUTION WIDTH 12.8 % (11.7-14.4)
--- NOTE | 2020-06-24 07:00 | NUR ---
BED SIDE SHIFT REPORT GIVEN TO ONCOMING RN.STABLE CONDITION.
--- NOTE | 2020-06-24 07:00 | NUR ---
BEDSIDE SHIFT REPORT RECEIVED FROM THE MARINE METEOROLOGIST RN. EDUCATED PT ABOUT FALL PRECAUTIONS. PT VERBALIZED UNDERSTANDING. BED IS LOW AND LOCKED. SIDE RAILS X2. CALL LIGHT WITH IN EASY REACH. ALL SAFETY MEASURES IN PLACE. PT DENIES NEEDS AT THIS TIME.
[2020-06-24 07:06] LABS: ALANINE AMINOTRANSFERASE 16 IU/L (0-55); ALBUMIN 3.1 g/dL (3.5-5.0); ALBUMIN/GLOBULIN RATIO 1.2 (0.8-2.0); ALKALINE PHOSPHATASE 95 IU/L (40-150); BLOOD UREA NITROGEN 13 mg/dL (7-26); BUN/CREATININE RATIO 18 (6-25); CALCIUM 8.2 mg/dL (8.4-10.2); CARBON DIOXIDE 23 mmol/L (22-29); CHLORIDE 107 mmol/L (98-107); CREATININE, SERUM 0.73 mg/dL (0.72-1.25); EST GLOMERULAR FILTRATION RATE > 60 ML/MIN (60-); GLUCOSE 273 mg/dL (74-118); SODIUM 139 mmol/L (136-145)
[2020-06-24 07:27] LABS: CREATINE KINASE 23 IU/L (30-200)
[2020-06-24 08:19] VITALS: BP 143/78
[2020-06-24] MEDS: INSULIN REGULAR, HUMAN 100 UNIT/1 ML 3ML VIAL SQ SCH ×2 (08:36→11:45)
[2020-06-24] MEDS ORDERED: METOPROLOL SUCCINATE 50 MG TAB XL PO SCH (09:00)
[2020-06-24] MEDS ORDERED: HYDROCHLOROTHIAZIDE 25 MG TAB PO SCH (09:00)
[2020-06-24] MEDS ORDERED: LOSARTAN POTASSIUM 100 MG TAB PO SCH (09:00)
[2020-06-24 09:35] VITALS: BP 143/78
[2020-06-24 11:58] VITALS: BP 148/82
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
--- NOTE | 2020-06-24 12:45 | NUR ---
[facility] TO D/C PT PER DR. Sheyla PUDRY. CONTINUE SAME MEDS PER THE
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
== END 2020-06-24 14:16 | disposition home or self-care (01) ==
LOC: ER 08:30 → INTOOBSV 10:24 → ERHOLD 10:24 → MED/SURG2 13:30
PROVIDERS: ADMIT Internal Medicine; ATTEND Internal Medicine
DX: E11.65 Type 2 diabetes mellitus with hyperglycemia (principal); I10 Essential (primary) hypertension; E78.5 Hyperlipidemia, unspecified; Z82.49 Family history of ischemic heart disease and other diseases of the circulatory system; Z11.59 Encounter for screening for other viral diseases; G89.21 Chronic pain due to trauma
CPT/HCPCS: 36415 ×2; 36600; 71045; 80048; 80053 ×2; 81001; 82550 ×2; 82553 ×2; 82805; 82948 ×2; 83605; 84484 ×2; 85025 ×2; 93005; 93306; 99284; G0378 ×2; J1815; J1817; J2270 ×2; J2405 ×2; J7030 ×2; U0002

== ENCOUNTER 2021-02-26 16:03 | Emergency (ER) | payer OTHER ==
[~2021-02-26] VITALS: Ht 177.8 cm; Wt 92.5 kg
[2021-02-26] MEDS ORDERED: METHOCARBAMOL500 MG (16:14)
[2021-02-26] MEDS ORDERED: HYDROMORPHONE HC4 MG (16:14)
[2021-02-26] MEDS ORDERED: TETANUS/DIPHTHERIA TOX ADULT 0.5 ML SYR IM ONE (16:15)
[2021-02-26] MEDS ORDERED: IBUPROFEN 600 MG TAB PO STA (17:20)
== END 2021-02-26 17:38 | disposition home or self-care (01) ==
LOC: ER 16:25
DX: S61.432A Puncture wound without foreign body of left hand, initial encounter (principal); W26.8XXA Contact with other sharp object(s), not elsewhere classified, initial encounter; Y93.89 Activity, other specified; Y92.828 Other wilderness area as the place of occurrence of the external cause; I10 Essential (primary) hypertension; E11.9 Type 2 diabetes mellitus without complications; M54.9 Dorsalgia, unspecified; G89.29 Other chronic pain; F17.210 Nicotine dependence, cigarettes, uncomplicated
CPT/HCPCS: 90714; 99283

== ENCOUNTER 2021-12-15 14:04 | Emergency (ER) | payer OTHER ==
[~2021-12-15] VITALS: Ht 177.8 cm; Wt 92.5 kg
[~2021-12-15 14:04] MED LIST changes: +HYDROMORPHONE HC4 MG; +METHOCARBAMOL500 MG
[2021-12-15 14:55] LABS: BASOPHILS # (AUTO) 0.1 (0.0-0.1); BASOPHILS % 1.1 % (0.0-1.0); EOSINOPHILS # (AUTO) 0.2 (0.0-0.4); EOSINOPHILS % 2.9 % (0.0-6.0); HEMATOCRIT 35.8 % (38.2-49.6); HEMOGLOBIN 12.5 g/dL (14.0-18.0); LYMPHOCYTES % 35.6 % (18.0-39.1); MEAN CORPUSCULAR HEMOGLOBIN 28.5 pg (28-32); MEAN CORPUSCULAR HGB CONC 34.9 g/dL (31-35); MEAN CORPUSCULAR VOLUME 81.5 fL (81-99); MONOCYTES # (AUTO) 0.7 (0.2-0.8); MONOCYTES % 7.9 % (4.4-11.3); NEUTROPHILS # (AUTO) 4.3 (2.1-6.9); NEUTROPHILS % 51.9 % (38.7-80.0); PLATELET COUNT 270 x10e3/uL (140-360); RED BLOOD COUNT 4.39 x10e6/uL (4.3-5.7); RED CELL DISTRIBUTION WIDTH 12.5 % (11.7-14.4)
[2021-12-15 15:11] LABS: ALBUMIN 3.3 g/dL (3.5-5.0); ALBUMIN/GLOBULIN RATIO 1.3 (0.8-2.0); ANION GAP 10.7 mmol/L (8-16); CALCIUM 8.2 mg/dL (8.4-10.2); CREATININE, SERUM 0.75 mg/dL (0.72-1.25); POTASSIUM 3.7 mmol/L (3.5-5.1)
[2021-12-15] MEDS ORDERED: OXYCODONE/ACETAMINOPHEN 5-325 1 EACH TABLET PO STA (16:55)
== END 2021-12-15 18:22 | disposition other institution (70) ==
LOC: ER 14:24
DX: I63.9 Cerebral infarction, unspecified (principal); R42 Dizziness and giddiness; E11.65 Type 2 diabetes mellitus with hyperglycemia; I10 Essential (primary) hypertension; M54.9 Dorsalgia, unspecified; G89.29 Other chronic pain
CPT/HCPCS: 36415; 70450; 70496; 70498; 71045; 80053; 84484; 85025; 93005; 99284; U0002